=== PATIENT | female | born 1950 | race Caucasian/White ===

== ENCOUNTER → 2017-03-07 | Outpatient (CLI) | payer MEDICARE, OTHER ==
[~2017-03-07] MED LIST: CHOLESTEROL; CRESTOR; HYDR-3720 PO
--- NOTE | 2017-03-09 08:06 | Diagnostic Imaging Report ---
INDICATION: Digital mammogram bilateral screening. This study was compared to the prior exam of 04/18/12 and 03/28/11. At this time, there are no current complaints. The current study was also evaluated with a Computer Aided Detection (CAD) system. FINDINGS: The fibroglandular tissue in both breasts is heterogeneously dense. Tomographic views do suggest that there is an area of mild architectural distortion in the upper-outer aspect of the right breast. I would recommend that compression views of this area be obtained in the CC and MLO projections as well as rolled views in the CC projection. Ultrasound of this portion right breast should be performed as well. The left breast is unchanged. IMPRESSION: Additional mammographic views and ultrasound of right breast would be recommended for further study. ACR BI-RADS Category 0: Incomplete. (Needs additional imaging evaluation). Result letter will be mailed to the patient. Note: At least 10% of breast cancer is not imaged by mammography. Dictated by: Dictated on workstation # [id number]
== END ==
LOC: RAD 13:16
PROVIDERS: ATTEND Family Medicine
DX: Z12.31 Encounter for screening mammogram for malignant neoplasm of breast (principal); R92.8 Other abnormal and inconclusive findings on diagnostic imaging of breast
CPT/HCPCS: 77067

== ENCOUNTER → 2017-03-17 | Outpatient (CLI) | payer MEDICARE, OTHER ==
--- NOTE | 2017-03-17 09:41 | Diagnostic Imaging Report ---
Right breast diagnostic mammogram. INDICATION: Focal asymmetry along the outer aspect of the right breast. CAD is utilized. FINDINGS: Focal compression views and tomographic evaluation demonstrate no definite underlying lesion at the area of focal asymmetry in the outer upper aspect of the right breast. IMPRESSION: Suggestion of summation artifact explaining the focal asymmetry in the upper outer aspect of the right breast. Ultrasound evaluation pending. ACR BI-RADS Category 0: Incomplete. (Needs additional imaging evaluation). Result letter will be mailed to the patient. Note: At least 10% of breast cancer is not imaged by mammography. Dictated by: Dictated on workstation # [id number]
--- NOTE | 2017-03-17 19:46 | Diagnostic Imaging Report ---
Right breast ultrasound. INDICATION: Lateral right breast focal asymmetry. FINDINGS: The outer aspect of the right breast is scanned with no underlying abnormality seen. IMPRESSION: Negative study. The focal asymmetry seen on mammography is favored to be related to summation artifact of parenchyma. Six-month follow-up right breast mammogram is recommended to ensure stability or resolution. ACR BI-RADS Category 3: Probably benign findings. Dictated on workstation # [id number]
== END ==
LOC: RAD 09:05
PROVIDERS: ATTEND Nurse Practitioner Family
DX: R92.8 Other abnormal and inconclusive findings on diagnostic imaging of breast (principal)

== ENCOUNTER → 2017-09-18 | Outpatient (CLI) | payer MEDICARE, OTHER ==
--- NOTE | 2017-09-18 19:55 | Diagnostic Imaging Report ---
INDICATION: Right breast asymmetry. Patient presents for six-month followup. Correlation is made with prior exam from 03/07/2017 and 04/18/2012. The current study was also evaluated with a Computer Aided Detection (CAD) system. FINDINGS: 3-D CC, MLO and mediolateral mammography was performed of the right breast. The area of asymmetry in the upper outer right breast appears stable and most likely represents summation. This is similar to mammogram dating back to 2010. No new mass or malignant appearing microcalcifications are seen. The right axilla is unremarkable. IMPRESSION: Stable right mammogram. Patient should return for bilateral screening mammography in 6 months. ACR BI-RADS Category 2: Benign findings. Result letter will be mailed to the patient. Note: At least 10% of breast cancer is not imaged by mammography. Dictated by: Dictated on workstation # [id number]
== END ==
LOC: RAD 13:35
PROVIDERS: ATTEND Family Medicine
DX: N64.89 Other specified disorders of breast (principal)

== ENCOUNTER → 2018-01-08 | Outpatient (CLI) | payer MEDICARE, OTHER ==
[~2018-01-08] MED LIST changes: +ASPI-983 PO; +ASPI-999 PO; +ATOR40TA70 PO; +CALC-6 PO; +CLOP75TA69 PO; +LOSA1TAB20 PO; +METF500T5 PO; +MULT-35 PO; +OMEP20CA12 PO; +OMG1KC PO; +VITA400C60 PO
[2018-01-08 08:38] LABS: BASOPHILS % (AUTO) 0 % (0-10); EOSINOPHILS # (AUTO) 0.1 10^3/uL (0.0-0.3); EOSINOPHILS % (AUTO) 3 % (0-10); HEMATOCRIT 43 % (35-52); HEMOGLOBIN 14.1 G/DL (11.5-16.0); LYMPHOCYTES # (AUTO) 1.8 X 10^3 (1.0-4.0); LYMPHOCYTES % (AUTO) 34 % (12-44); MEAN CORPUSCULAR HEMOGLOBIN 31 PG (25-34); MEAN CORPUSCULAR HGB CONC 33 G/DL (32-36); MEAN CORPUSCULAR VOLUME 94 FL (80-99); MEAN PLATELET VOLUME 11.2 FL (7.4-10.4); MONOCYTES # (AUTO) 0.4 X 10^3 (0.0-1.0); MONOCYTES % (AUTO) 7 % (0-12); NEUTROPHILS % (AUTO) 56 % (42-75); PLATELET COUNT 177 10^3/uL (130-400); RED BLOOD COUNT 4.61 10^6/uL (4.35-5.85); RED CELL DISTRIBUTION WIDTH 14.7 % (10.0-14.5); WHITE BLOOD COUNT 5.4 10^3/uL (4.3-11.0)
[2018-01-08 09:03] LABS: ALANINE AMINOTRANSFERASE 10 U/L (0-55); ALKALINE PHOSPHATASE 54 U/L (40-136); BILIRUBIN,TOTAL 0.4 MG/DL (0.1-1.0); BUN/CREATININE RATIO 24; CALCIUM 9.5 MG/DL (8.5-10.1); CARBON DIOXIDE 28 MMOL/L (21-32); CHLORIDE 109 MMOL/L (98-107); CHOLESTEROL 153 MG/DL (< 200); CREATININE SERUM 0.76 MG/DL (0.60-1.30); GFR ESTIMATED > 60; GLUCOSE 119 MG/DL (70-105); HDL CHOLESTEROL 50 MG/DL (40-60); MAGNESIUM 1.8 MG/DL (1.8-2.4); POTASSIUM 4.1 MMOL/L (3.6-5.0); SODIUM 144 MMOL/L (135-145); TOTAL PROTEIN 6.3 GM/DL (6.4-8.2); TRIGLYCERIDES 80 MG/DL (<150); VLDL CHOLESTEROL 16 MG/DL (5-40)
[2018-01-08 09:07] LABS: ERYTHROCYTE SEDIMENTATION RATE 6 MM/HR (0-30)
== END ==
LOC: CARD 08:12
PROVIDERS: ATTEND Internal Medicine Cardiovascular Disease
DX: R55 Syncope and collapse (principal); I10 Essential (primary) hypertension; E78.4 Other hyperlipidemia; E11.9 Type 2 diabetes mellitus without complications; Z72.0 Tobacco use
CPT/HCPCS: 36415; 80053; 80061; 83735; 84443; 85025; 85652; 93225; 93226

== ENCOUNTER → 2018-01-09 | Outpatient (CLI) | payer MEDICARE, OTHER ==
[~2018-01-09] VITALS: Ht 147.3 cm; Wt 65.8 kg
[~2018-01-09] MED LIST changes: +CATHETER FLUSH 10 ML SYR IV PRN; +REGADENOSON 0.4 MG/5 ML SYR (LEXISCAN) IV ONE
[2018-01-09 12:11] VITALS: BP 142/71
[2018-01-09 12:15] VITALS: BP 130/67
--- NOTE | 2018-01-09 14:58 | STRESS TEST ---
DATE OF SERVICE: 01/09/2018 RESTING AND POST REGADENOSON TECHNETIUM 99M TETROFOSMIN SPECT CT IMAGING Baseline images were carried out after injection of 10.11 mCi of technetium-99m Tetrofosmin. This was followed by 0.4 mg regadenoson and 30.3 mCi of technetium-99m Tetrofosmin. The electrocardiogram showed sinus rhythm at baseline and it did not change significantly with the regadenoson infusion. The patient noted some shortness of breath following regadenoson infusion, which resolved in a few minutes. Review of images at rest and following stress indicates a small inferoapical perfusion defect that appears transient. Gated images show normal global left ventricular systolic with normal regional wall motion. Left ventricular ejection fraction is calculated to be 74%. Left ventricular end diastolic volume is 60 mL. TID is absent (1.06). CONCLUSIONS: 1. This study is indicative of a small amount of inferoapical ischemia. 2. Normal regional wall motion. 3. Normal global left ventricular systolic function with a calculated ejection fraction of 74%. Job ID: [id number] DocumentID: [id number] Dictated Date: 01/09/2018 14:46:03 Airport Operations Specialist Date: 01/09/2018 14:57:24 Dictated By: CLAIR DE LA CRUZ MD, MA, FACP, FACC,
== END ==
LOC: CARD 10:47
PROVIDERS: ATTEND Internal Medicine Cardiovascular Disease
DX: R55 Syncope and collapse (principal); I10 Essential (primary) hypertension; E78.4 Other hyperlipidemia; E11.9 Type 2 diabetes mellitus without complications; Z72.0 Tobacco use
CPT/HCPCS: 78452; 93017

== ENCOUNTER 2018-01-16 09:53 | Day surgery (SDC) | payer MEDICARE, OTHER ==
[~2018-01-16] VITALS: Ht 147.3 cm; Wt 65.8 kg
[~2018-01-16 09:53] MED LIST changes: -ASPI-983 PO; -ASPI-999 PO; -ATOR40TA70 PO; -CALC-6 PO; -CATHETER FLUSH 10 ML SYR IV PRN; -CLOP75TA69 PO; -LOSA1TAB20 PO; -METF500T5 PO; -MULT-35 PO; -OMEP20CA12 PO; -OMG1KC PO; -REGADENOSON 0.4 MG/5 ML SYR (LEXISCAN) IV ONE; -VITA400C60 PO
--- OUTSIDE RECORDS SUMMARY | 2018-01-16 09:56 | XMS REPORT ---
Author Author PAUL BURR Organization [facility] Address [address] [place] [address] Care Team Providers Care Pharmaceutical Sales Representative Name Role Phone PAUL BURR Unavailable PROBLEMS Unknown Problems ALLERGIES No Information ENCOUNTERS Encounter Location Date Diagnosis [facility] [address] [facility] [id number] [address] May, Exposure to hepatitis C Z20.5 IMMUNIZATIONS No Known Immunizations SOCIAL HISTORY Never Assessed REASON FOR VISIT Lab (walk-in) PLAN OF CARE VITAL SIGNS MEDICATIONS Unknown Medications RESULTS Name Result Date Reference Range HEP C ANTIBODY 2017-05-06 HEPATITIS C ANTIBODY NON-REACTIVE NON-REACTIVE SIGNAL TO CUT-OFF 0.01 <1.00 PROCEDURES Procedure Date Ordered Result Body Site HEPATITIS C AB TEST May 06, 2017 VENIPUNCT, ROUTINE* May 06, 2017 INSTRUCTIONS MEDICATIONS ADMINISTERED No Known Medications
--- OUTSIDE RECORDS SUMMARY | 2018-01-16 09:58 | XMS REPORT | CCD ---
Author Author Mayte Hanson Organization Mayte Hanson MD, [facility] Address [address] [place] [address] Phone Care Team Providers Care Medical Coordinator Pesticide Use Name Role Phone PP Unavailable CCM Unavailable Summary Purpose Interface Exchange Insurance Providers Payer name Policy type / Coverage type Covered constitution party ID Effective Begin Date Effective End Date WPS Medicare Part B Medicare Part B [id number] Unknown Unknown [employer] Medicare Part B [id number] Unknown Unknown Family history Mother Diagnosis Age At Onset Stroke Unknown Skin cancer Unknown Hypertension Unknown Osteoporosis Unknown Myocardial infarction Unknown Brother Diagnosis Age At Onset Myocardial infarction Unknown Son Diagnosis Age At Onset Depression Unknown Hypertension Unknown Alcoholism Unknown Social History Social History Element Codes Description Effective Dates Marital status Unknown 02/08/2016 Employment Unknown Retired 02/08/[address]: 84903940 Current every day smoker 02/08/2016 Number of years using tobacco Unknown 20 - 30 02/08/2016 Number of cigarettes/day Unknown 20 (One Pack) 02/08/[address]: 059271366 Never drinks alcohol 02/08/2016 Has the patient ever used illegal drugs? Unknown Has never used illegal drugs 02/08/2016 Allergies, Adverse Reactions, Alerts Allergies, Adverse Reactions, Alerts data not found Past Medical History Illness Codes Condition Status Onset Date Resolved Date Encounter for screening mammogram for malignant neoplasm of breast ICD-9: V76.12 ICD-10: Z12.31 Active 02/09/2017 Unknown Essential (primary) hypertension ICD-9: 401.1 ICD-10: I10 Active 04/10/2016 Unknown Mixed hyperlipidemia ICD-9: 272.2 ICD-10: E78.2 Active 02/07/2016 Unknown Tobacco use ICD-9: 305.1 ICD-10: Z72.0 Active 04/10/2016 Unknown Type 2 diabetes mellitus without complications ICD-9: 250.00 ICD-10: E11.9 Active 04/10/2016 Unknown Diabetes Unknown Active 11/09/2016 Unknown Encounter for immunization ICD-9: V04.81 ICD-10: Z23 Active 04/10/2016 Unknown Gastro-esophageal reflux disease without esophagitis ICD-9: 530.81 ICD-10: K21.9 Active 03/13/2016 Unknown Type 2 diabetes mellitus with hyperglycemia ICD-9: 250.02 ICD-10: E11.65 Active 03/13/2016 Unknown Impacted cerumen, bilateral ICD-9: 380.4 ICD-10: H61.23 Active 02/14/2016 Unknown Problems Condition Codes Effective Dates Condition Status Encounter for screening mammogram for malignant neoplasm of breast ICD-9: V76.12 ICD-10: Z12.31 02/09/2017 Active Essential (primary) hypertension ICD-9: 401.1 ICD-10: I10 04/10/2016 Active Mixed hyperlipidemia ICD-9: 272.2 ICD-10: E78.2 02/07/2016 Active Tobacco use ICD-9: 305.1 ICD-10: Z72.0 04/10/2016 Active Type 2 diabetes mellitus without complications ICD-9: 250.00 ICD-10: E11.9 04/10/2016 Active Diabetes Unknown 11/09/2016 Active Encounter for immunization ICD-9: V04.81 ICD-10: Z23 04/10/2016 Active Gastro-esophageal reflux disease without esophagitis ICD-9: 530.81 ICD-10: K21.9 03/13/2016 Active Type 2 diabetes mellitus with hyperglycemia ICD-9: 250.02 ICD-10: E11.65 03/13/2016 Active Impacted cerumen, bilateral ICD-9: 380.4 ICD-10: H61.23 02/14/2016 Active Medications Medication Codes Instructions Start Date Stop Date Status Fill Instructions omeprazole 20 mg capsule,delayed release RxNorm: 006113 1 Capsule(s) PO daily 07/07/2017 07/01/2018 Active atorvastatin 40 mg tablet RxNorm: 910672 1 Tablet(s) PO daily 07/07/2017 07/01/2018 Active losartan 50 mg-hydrochlorothiazide 12.5 mg tablet RxNorm: 641417 1 Tablet(s) PO daily 07/07/2017 07/01/2018 Active metformin 500 mg tablet RxNorm: 698250 1 Tablet(s) PO BID 02/0905/04/2018 Active omeprazole 20 mg capsule,delayed release RxNorm: 289660 1 Capsule(s) PO daily 12/20/2016 07/06/2017 Inactive metformin 500 mg tablet RxNorm: 292177 TAKE ONE-HALF TABLET BY MOUTH TWICE DAILY 09/12/2016 02/08/2017 Inactive metformin 500 mg tablet RxNorm: 103010 1/2 Tablet(s) PO BID 02/201609/06/2016 Inactive atorvastatin 40 mg tablet RxNorm: 953699 1 Tablet(s) PO daily 06/08/2016 06/02/2017 Inactive losartan 50 mg-hydrochlorothiazide 12.5 mg tablet RxNorm: 234038 1 Tablet(s) PO daily 06/08/2016 06/02/2017 Inactive losartan 50 mg-hydrochlorothiazide 12.5 mg tablet RxNorm: 824411 1 Tablet(s) PO daily 04/11/2016 06/07/2016 Inactive omeprazole 20 mg capsule,delayed release RxNorm: 066427 1 Capsule(s) PO daily 03/14/2016 12/19/2016 Inactive metformin 500 mg tablet RxNorm: 622724 1/2 Tablet(s) PO BID 06/201606/08/2016 Inactive losartan 50 mg-hydrochlorothiazide 12.5 mg tablet RxNorm: 989755 1 Tablet(s) PO daily 02/08/2016 04/10/2016 Inactive Vitamin D3 1,000 unit tablet RxNorm: 316448 1 Tablet(s) PO daily No Start Date Active vitamin E 400 unit tablet RxNorm: 843047 1 Tablet(s) PO daily No Start Date Active multivitamin tablet RxNorm: 1 Tablet(s) PO daily No Start Date Active Fish Oil 300 mg-1,000 mg capsule,delayed release RxNorm: 1 Capsule(s) PO daily No Start Date Active Calcium 600 oral RxNorm: 453815 oral No Start Date Active aspirin 325 mg tablet RxNorm: 430653 1 Tablet(s) PO daily No Start Date Active atorvastatin 40 mg tablet RxNorm: 765723 1 Tablet(s) PO daily No Start Date 06/07/2016 Inactive omeprazole 40 mg capsule,delayed release RxNorm: 977392 1 Capsule(s) PO daily No Start Date 03/13/2016 Inactive Medication Administered No Medication Administered data Immunizations Vaccine Codes Date Status Influenza CVX: 141 04/11/2016 completed Assessments Condition Codes Effective Dates Essential (primary) hypertension ICD-10: I10 ICD-9: 401.1 02/09/2017 Tobacco use ICD-10: Z72.0 ICD-9: 305.1 02/09/2017 Encounter for screening mammogram for malignant neoplasm of breast ICD-10: Z12.31 ICD-9: V76.12 02/09/2017 Type 2 diabetes mellitus without complications ICD-10: E11.9 ICD-9: 250.00 02/09/2017 Mixed hyperlipidemia ICD-10: E78.2 ICD-9: 272.2 02/09/2017 Encounter for immunization ICD-10: Z23 ICD-9: V04.81 04/11/2016 Type 2 diabetes mellitus with hyperglycemia ICD-10: E11.65 ICD-9: 250.02 03/14/2016 Gastro-esophageal reflux disease without esophagitis ICD-10 : K21.9 ICD-9: 530.81 03/14/2016 Impacted cerumen, bilateral ICD-10: H61.23 ICD-9: 380.4 02/15/2016 Reason For Visit Reason For Visit Effective Dates Notes hypertension 02/09/2017 hypertension 11/09/2016 hypertension 07/12/2016 hypertension 04/11/2016 hypertension 03/14/2016 hyperlipidemia 02/08/2016 Results Observation Observation Code Item Item Code Result Date Cbc With Differential Ord2 WBC 5.39 K/ul 08/02/2017 Cbc With Differential Ord2 RBC 4.70 M/ul 08/02/2017 Cbc With Differential Ord2 HGB 14.3 g/dl 08/02/2017 Cbc With Differential Ord2 HCT 44.5 % 08/02/2017 Cbc With Differential Ord2 Neut% 53.8 % 08/02/2017 Cbc With Differential Ord2 MCV 94.7 fl 08/02/2017 Cbc With Differential Ord2 Lymph% 35.8 % 08/02/2017 Cbc With Differential Ord2 [place]% 7.2 % 08/02/2017 Cbc With Differential Ord2 MCH 30.4 pg 08/02/2017 Cbc With Differential Ord2 MCHC 32.1 pg 08/02/2017 Cbc With Differential Ord2 Eos% 2.8 % 08/02/2017 Cbc With Differential Ord2 Baso% 0.4 % 08/02/2017 Cbc With Differential Ord2 PLT 158 K/ul 08/02/2017 Cbc With Differential Ord2 Neut ABS# 2.90 K/ul 08/02/2017 Cbc With Differential Ord2 RDW 14.9 % 08/02/2017 Cbc With Differential Ord2 Lymph ABS# 1.93 K/ul 08/02/2017 Cbc With Differential Ord2 [place] ABS# 0.4 K/ul 08/02/2017 Cbc With Differential Ord2 Eos ABS# 0.2 K/ul 08/02/2017 Cbc With Differential Ord2 Baso ABS# 0.0 K/ul 08/02/2017 Cbc With Differential Ord2 WBC 5.28 K/ul 02/02/2017 Cbc With Differential Ord2 RBC 4.75 M/ul 02/02/2017 Cbc With Differential Ord2 HGB 14.6 g/dl 02/02/2017 Cbc With Differential Ord2 Neut% 50.5 % 02/02/2017 Cbc With Differential Ord2 HCT 45.1 % 02/02/2017 Cbc With Differential Ord2 MCV 94.9 fl 02/02/2017 Cbc With Differential Ord2 Lymph% 37.7 % 02/02/2017 Cbc With Differential Ord2 MCH 30.7 pg 02/02/2017 Cbc With Differential Ord2 [place]% 8.7 % 02/02/2017 Cbc With Differential Ord2 Eos% 2.7 % 02/02/2017 Cbc With Differential Ord2 MCHC 32.4 pg 02/02/2017 Cbc With Differential Ord2 Baso% 0.4 % 02/02/2017 Cbc With Differential Ord2 PLT 155 K/ul 02/02/2017 Cbc With Differential Ord2 RDW 15.0 % 02/02/2017 Cbc With Differential Ord2 Neut ABS# 2.67 K/ul 02/02/2017 Cbc With Differential Ord2 Lymph ABS# 1.99 K/ul 02/02/2017 Cbc With Differential Ord2 [place] ABS# 0.5 K/ul 02/02/2017 Cbc With Differential Ord2 Eos ABS# 0.1 K/ul 02/02/2017 Cbc With Differential Ord2 Baso ABS# 0.0 K/ul 02/02/2017 Lipid Ord30 CHOL 134 mg/dL 02/02/2017 Lipid Ord30 HDL 57.0 mg/dl 02/02/2017 Lipid Ord30 TRIG 73 mg/dL 02/02/2017 Lipid Ord30 LDL 62 mg/dL 02/02/2017 Lipid Ord30 C/HDL 2.4 Ratio 02/02/2017 Tsh Ord6 hTSH II 0.69 uIU/mL 02/02/2017 %Hba1C Pds603 % HbA1c 58109-2 6.1 % 02/02/2017 %Hba1C Ikq011 Gluc Ave 128 mg/dL 02/02/2017 Comp Metabolic Ido613 NA 145 mEq/L 02/02/2017 Comp Metabolic Bdj262 K 4.2 mEq/L 02/02/2017 Comp Metabolic Jqr707 CL 106 mEq/L 02/02/2017 Comp Metabolic Ljy402 CO2 30.0 mEq/L 02/02/2017 Comp Metabolic Cce227 ANION GAP 13 02/02/2017 Comp Metabolic Mfn501 GLUCOSE 110 mg/dL 02/02/2017 Comp Metabolic Nvk486 Creat 0.7 mg/dL 02/02/2017 Comp Metabolic Mwh242 eGFR 96 ml/min/1.73m2 02/02/2017 Comp Metabolic Zvh298 BUN 19 mg/dL 02/02/2017 Comp Metabolic Ruu487 B/C Ratio 29.2 Ratio 02/02/2017 Comp Metabolic Vjv683 CALCIUM 9.3 mg/dL 02/02/2017 Comp Metabolic Bmz667 ALK PHOS 58 U/L 02/02/2017 Comp Metabolic Wyq146 AST(SGOT) 12 U/L 02/02/2017 Comp Metabolic Suz083 ALT(SGPT) 10 U/L 02/02/2017 Comp Metabolic Iic464 BILI T 0.4 mg/dL 02/02/2017 Comp Metabolic Xxp349 ALBUMIN 4.0 g/dL 02/02/2017 Comp Metabolic Ttp958 TPRO 6.2 g/dL 02/02/2017 Comp Metabolic Gde115 GLOB 2.2 g/dL 02/02/2017 Comp Metabolic Mzx412 A/G Ratio 1.8 Ratio 02/02/2017 Comp Metabolic Vbn916 Osmo 292 mOsmo 02/02/2017 Comp Metabolic Oxk839 NA 145 mEq/L 11/01/2016 Comp Metabolic Aqv797 K 4.3 mEq/L 11/01/2016 Comp Metabolic Uho977 CL 106 mEq/L 11/01/2016 Comp Metabolic Gqx688 CO2 32.0 mEq/L 11/01/2016 Comp Metabolic Inn922 ANION GAP 11 11/01/2016 Comp Metabolic Cct379 GLUCOSE 126 mg/dL 11/01/2016 Comp Metabolic Isd461 Creat 0.6 mg/dL 11/01/2016 Comp Metabolic Uye392 eGFR 100 ml/min/1.73m2 11/01/2016 Comp Metabolic Vca960 BUN 18 mg/dL 11/01/2016 Comp Metabolic Dod200 B/C Ratio 28.6 Ratio 11/01/2016 Comp Metabolic Lyy602 CALCIUM 9.2 mg/dL 11/01/2016 Comp Metabolic Ypr028 ALK PHOS 63 U/L 11/01/2016 Comp Metabolic Gsu840 AST(SGOT) 12 U/L 11/01/2016 Comp Metabolic Ral690 ALT(SGPT) 10 U/L 11/01/2016 Comp Metabolic Jvv542 BILI T 0.5 mg/dL 11/01/2016 Comp Metabolic Mce470 ALBUMIN 3.9 g/dL 11/01/2016 Comp Metabolic Gxm538 TPRO 6.1 g/dL 11/01/2016 Comp Metabolic Odn727 GLOB 2.2 g/dL 11/01/2016 Comp Metabolic Gvy578 A/G Ratio 1.8 Ratio 11/01/2016 Comp Metabolic Jqu942 Osmo 292 mOsmo 11/01/2016 Microalbumin Qcr549 MicroAlb <0.7 mg/dL 11/01/2016 Cbc With Differential Ord2 WBC 5.74 K/ul 11/01/2016 Cbc With Differential Ord2 RBC 4.82 M/ul 11/01/2016 Cbc With Differential Ord2 HGB 14.9 g/dl 11/01/2016 Cbc With Differential Ord2 Neut% 56.4 % 11/01/2016 Cbc With Differential Ord2 HCT 46.1 % 11/01/2016 Cbc With Differential Ord2 MCV 95.6 fl 11/01/2016 Cbc With Differential Ord2 Lymph% 33.4 % 11/01/2016 Cbc With Differential Ord2 [place]% 7.5 % 11/01/2016 Cbc With Differential Ord2 MCH 30.9 pg 11/01/2016 Cbc With Differential Ord2 MCHC 32.3 pg 11/01/2016 Cbc With Differential Ord2 Eos% 2.4 % 11/01/2016 Cbc With Differential Ord2 PLT 186 K/ul 11/01/2016 Cbc With Differential Ord2 Baso% 0.3 % 11/01/2016 Cbc With Differential Ord2 RDW 14.9 % 11/01/2016 Cbc With Differential Ord2 Neut ABS# 3.23 K/ul 11/01/2016 Cbc With Differential Ord2 Lymph ABS# 1.92 K/ul 11/01/2016 Cbc With Differential Ord2 [place] ABS# 0.4 K/ul 11/01/2016 Cbc With Differential Ord2 Eos ABS# 0.1 K/ul 11/01/2016 Cbc With Differential Ord2 Baso ABS# 0.0 K/ul 11/01/2016 %Hba1C Umy564 % HbA1c 24604-9 6.2 % 11/01/2016 %Hba1C Tfa712 Gluc Ave 131 mg/dL 11/01/2016 Lipid Ord30 CHOL 150 mg/dL 07/07/2016 Lipid Ord30 HDL 51.0 mg/dl 07/07/2016 Lipid Ord30 TRIG 133 mg/dL 07/07/2016 Lipid Ord30 LDL 72 mg/dL 07/07/2016 Lipid Ord30 C/HDL 2.9 Ratio 07/07/2016 %Hba1C Wfw359 % HbA1c 71905-8 6.2 % 07/07/2016 %Hba1C Aoh567 Gluc Ave 131 mg/dL 07/07/2016 Cbc With Differential Ord2 WBC 6.02 K/ul 07/07/2016 Cbc With Differential Ord2 RBC 4.99 M/ul 07/07/2016 Cbc With Differential Ord2 HGB 15.5 g/dl 07/07/2016 Cbc With Differential Ord2 HCT 46.6 % 07/07/2016 Cbc With Differential Ord2 Neut% 55.6 % 07/07/2016 Cbc With Differential Ord2 MCV 93.4 fl 07/07/2016 Cbc With Differential Ord2 Lymph% 32.6 % 07/07/2016 Cbc With Differential Ord2 MCH 31.1 pg 07/07/2016 Cbc With Differential Ord2 [place]% 7.5 % 07/07/2016 Cbc With Differential Ord2 Eos% 3.3 % 07/07/2016 Cbc With Differential Ord2 MCHC 33.3 pg 07/07/2016 Cbc With Differential Ord2 Baso% 1.0 % 07/07/2016 Cbc With Differential Ord2 PLT 235 K/ul 07/07/2016 Cbc With Differential Ord2 RDW 14.5 % 07/07/2016 Cbc With Differential Ord2 Neut ABS# 3.35 K/ul 07/07/2016 Cbc With Differential Ord2 Lymph ABS# 1.96 K/ul 07/07/2016 Cbc With Differential Ord2 [place] ABS# 0.5 K/ul 07/07/2016 Cbc With Differential Ord2 Eos ABS# 0.2 K/ul 07/07/2016 Cbc With Differential Ord2 Baso ABS# 0.1 K/ul 07/07/2016 Tsh Ord6 hTSH II 0.72 uIU/mL 07/07/2016 Comp Metabolic Hoo926 NA 141 mEq/L 07/07/2016 Comp Metabolic Uad793 K 3.8 mEq/L 07/07/2016 Comp Metabolic Ish446 CL 104 mEq/L 07/07/2016 Comp Metabolic Ely135 CO2 27.0 mEq/L 07/07/2016 Comp Metabolic Ztk361 ANION GAP 14 07/07/2016 Comp Metabolic Mzj269 GLUCOSE 128 mg/dL 07/07/2016 Comp Metabolic Tdr041 Creat 0.7 mg/dL 07/07/2016 Comp Metabolic Hyp219 eGFR 95 ml/min/1.73m2 07/07/2016 Comp Metabolic Cib870 BUN 11 mg/dL 07/07/2016 Comp Metabolic Qrg813 B/C Ratio 16.7 Ratio 07/07/2016 Comp Metabolic Vhx577 CALCIUM 9.9 mg/dL 07/07/2016 Comp Metabolic Zca982 ALK PHOS 75 U/L 07/07/2016 Comp Metabolic Cva080 AST(SGOT) 18 U/L 07/07/2016 Comp Metabolic Ige696 ALT(SGPT) 21 U/L 07/07/2016 Comp Metabolic Hnh021 BILI T 0.5 mg/dL 07/07/2016 Comp Metabolic Ece657 ALBUMIN 4.4 g/dL 07/07/2016 Comp Metabolic Rtd002 TPRO 6.8 g/dL 07/07/2016 Comp Metabolic Ezp772 GLOB 2.4 g/dL 07/07/2016 Comp Metabolic Agk121 A/G Ratio 1.9 Ratio 07/07/2016 Comp Metabolic Tan319 Osmo 282 mOsmo 07/07/2016 LIVER PNL 0806437 TOTAL PROTEIN 7.2 g/dL 04/07/2016 LIVER PNL 8958973 AST 21 U/L 04/07/2016 LIVER PNL 1772765 ALK PHOS 73 U/L 04/07/2016 LIVER PNL 2217251 Bili Total 0.5 mg/dL 04/07/2016 LIVER PNL 7955644 ALT 32 U/L 04/07/2016 LIVER PNL 0839901 ALBUMIN 4.5 g/dL 04/07/2016 LIVER PNL 1408867 Bili Direct 0.1 mg/dL 04/07/2016 CBC 9641378 WBC 5.6 10e9/L 04/07/2016 CBC 9720726 RBC 4.87 10e12/L 04/07/2016 CBC 0054197 HEMOGLOBIN 15.0 g/dL 04/07/2016 CBC 2089645 HEMATOCRIT 45.2 % 04/07/2016 CBC 3651052 MCV 92.8 fL 04/07/2016 CBC 3103071 MCH 30.8 pg 04/07/2016 CBC 3567524 MCHC 33.2 g/dL 04/07/2016 CBC 3175120 PLATELET COUNT 201 10e9/L 04/07/2016 CBC 4060047 Mean Plt Volume 12.1 fL 04/07/2016 CBC 0094561 Neut Auto 54.9 % 04/07/2016 CBC 7591140 Lymph Auto 32.6 % 04/07/2016 CBC 6221370 [place] Auto 8.6 % 04/07/2016 CBC 1143210 RDW 13.7 % 04/07/2016 CBC 4847132 Eos Auto 3.2 % 04/07/2016 CBC 3588275 Baso Auto 0.7 % 04/07/2016 CBC 2646551 Neutrophil Abs 3.07 10e9/L 04/07/2016 CBC 8481674 Lymphocyte Abs 1.83 10e9/L 04/07/2016 CBC 6791910 Monocyte Abs 0.48 10e9/L 04/07/2016 CBC 3202681 Eosinophil Abs 0.18 10e9/L 04/07/2016 CBC 1832278 Basophil Abs 0.04 10e9/L 04/07/2016 CBC 3296982 RDW-SD 45.5 fL 04/07/2016 %Hba1C Yqf847 % HbA1c 98826-6 7.1 % 03/04/2016 %Hba1C Eau512 Gluc Ave 157 mg/dL 03/04/2016 Comp Metabolic Ftu611 NA 139 mEq/L 03/04/2016 Comp Metabolic Byv943 K 4.1 mEq/L 03/04/2016 Comp Metabolic Nca210 CL 105 mEq/L 03/04/2016 Comp Metabolic Gbz640 CO2 28.0 mEq/L 03/04/2016 Comp Metabolic Bdc215 ANION GAP 10 03/04/2016 Comp Metabolic Tkj207 GLUCOSE 146 mg/dL 03/04/2016 Comp Metabolic Jfo635 Creat 0.7 mg/dL 03/04/2016 Comp Metabolic Cdc703 eGFR 83 ml/min/1.73m2 03/04/2016 Comp Metabolic Hvb054 BUN 19 mg/dL 03/04/2016 Comp Metabolic Qip046 B/C Ratio 25.7 Ratio 03/04/2016 Comp Metabolic Tst606 CALCIUM 9.5 mg/dL 03/04/2016 Comp Metabolic Amh252 ALK PHOS 84 U/L 03/04/2016 Comp Metabolic Zhz634 AST(SGOT) 29 U/L 03/04/2016 Comp Metabolic Tkn009 ALT(SGPT) 44 U/L 03/04/2016 Comp Metabolic Uoz336 BILI T 0.5 mg/dL 03/04/2016 Comp Metabolic Rtn251 ALBUMIN 4.4 g/dL 03/04/2016 Comp Metabolic Jfj240 TPRO 6.8 g/dL 03/04/2016 Comp Metabolic Onh824 GLOB 2.4 g/dL 03/04/2016 Comp Metabolic Qit739 A/G Ratio 1.8 Ratio 03/04/2016 Comp Metabolic Erw499 Osmo 282 mOsmo 03/04/2016 Lipid Ord30 CHOL 191 mg/dL 03/04/2016 Lipid Ord30 HDL 38.0 mg/dl 03/04/2016 Lipid Ord30 TRIG 219 mg/dL 03/04/2016 Lipid Ord30 LDL 109 mg/dL 03/04/2016 Lipid Ord30 C/HDL 5.0 Ratio 03/04/2016 Tsh Ord6 hTSH II 0.57 uIU/mL 03/04/2016 Cbc With Differential Ord2 WBC 5.61 K/ul 03/04/2016 Cbc With Differential Ord2 RBC 4.94 M/ul 03/04/2016 Cbc With Differential Ord2 HGB 15.3 g/dl 03/04/2016 Cbc With Differential Ord2 HCT 46.4 % 03/04/2016 Cbc With Differential Ord2 Neut% 51.9 % 03/04/2016 Cbc With Differential Ord2 MCV 93.9 fl 03/04/2016 Cbc With Differential Ord2 Lymph% 36.4 % 03/04/2016 Cbc With Differential Ord2 [place]% 7.8 % 03/04/2016 Cbc With Differential Ord2 MCH 31.0 pg 03/04/2016 Cbc With Differential Ord2 MCHC 33.0 pg 03/04/2016 Cbc With Differential Ord2 Eos% 3.4 % 03/04/2016 Cbc With Differential Ord2 Baso% 0.5 % 03/04/2016 Cbc With Differential Ord2 PLT 169 K/ul 03/04/2016 Cbc With Differential Ord2 RDW 14.2 % 03/04/2016 Cbc With Differential Ord2 Neut ABS# 2.91 K/ul 03/04/2016 Cbc With Differential Ord2 Lymph ABS# 2.04 K/ul 03/04/2016 Cbc With Differential Ord2 [place] ABS# 0.4 K/ul 03/04/2016 Cbc With Differential Ord2 Eos ABS# 0.2 K/ul 03/04/2016 Cbc With Differential Ord2 Baso ABS# 0.0 K/ul 03/04/2016 Review of Systems System Result Effective Dates Constitutional No recent illness 2016 Constitutional No chills 02/09/2017 Constitutional No fatigue 02/09/2017 Constitutional No fever 02/09/2017 Constitutional No insomnia 02/09/2017 Constitutional No malaise 02/09/2017 Eyes No blindness 02/09/2017 Eyes No vision change 02/09/2017 Ears/Nose/Throat/Neck No dental pain 04/2017 Ears/Nose/Throat/Neck No dizziness 2016 Ears/Nose/Throat/Neck No dysphagia 2016 Ears/Nose/Throat/Neck No headache 2016 Ears/Nose/Throat/Neck No hearing loss 04/2017 Ears/Nose/Throat/Neck No nasal allergies 02/09/2017 Ears/Nose/Throat/Neck No sore throat 04/2017 Ears/Nose/Throat/Neck No postnasal drip 02/09/2017 Ears/Nose/Throat/Neck No sinus congestion 02/09/2017 Cardiovascular No chest pain/pressure 04/2017 Cardiovascular No dyspnea 02/09/2017 Cardiovascular No edema 02/09/2017 Cardiovascular No exercise intolerance Cardiovascular No fatigue 02/09/2017 Cardiovascular No near-syncope/dizziness 02/09/2017 Respiratory No chest tightness 2016 Respiratory No cough 02/09/2017 Respiratory No dyspnea 02/09/2017 Respiratory No pedal edema 02/09/2017 Gastrointestinal No abdominal pain 2016 Gastrointestinal No constipation 2016 Gastrointestinal No diarrhea 02/09/2017 Gastrointestinal No gastroesophageal reflux 02/09/2017 Gastrointestinal No nausea 02/09/2017 Gastrointestinal No vomiting 02/09/2017 Genitourinary/Nephrology No dysuria 02/09 Genitourinary/Nephrology No nocturia 04/2017 Genitourinary/Nephrology No urinary incontinence 02/09/2017 Musculoskeletal No stiffness 02/09/2017 Musculoskeletal No swelling 02/09/2017 Musculoskeletal No muscle weakness 2016 Musculoskeletal No myalgias 02/09/2017 Dermatologic No rash 02/09/2017 Dermatologic No sores 02/09/2017 Dermatologic No scar 02/09/2017 Neurologic No dizziness 02/09/2017 Neurologic No headache 02/09/2017 Neurologic No neck pain 02/09/2017 Neurologic No syncope 02/09/2017 Psychiatric No anxiety 02/09/2017 Psychiatric No depression 02/09/2017 Constitutional No recent illness 2016 Constitutional No chills 11/09/2016 Constitutional No fatigue 11/09/2016 Constitutional No fever 11/09/2016 Constitutional No insomnia 11/09/2016 Constitutional No malaise 11/09/2016 Eyes No blindness 11/09/2016 Eyes No vision change 11/09/2016 Ears/Nose/Throat/Neck No dental pain 04/2017 Ears/Nose/Throat/Neck No dizziness 2016 Ears/Nose/Throat/Neck No dysphagia 2016 Ears/Nose/Throat/Neck No headache 2016 Ears/Nose/Throat/Neck No hearing loss 04/2017 Ears/Nose/Throat/Neck No nasal allergies 11/09/2016 Ears/Nose/Throat/Neck No sore throat 04/2017 Ears/Nose/Throat/Neck No postnasal drip 11/09/2016 Ears/Nose/Throat/Neck No sinus congestion 11/09/2016 Cardiovascular No chest pain/pressure 04/2017 Cardiovascular No dyspnea 11/09/2016 Cardiovascular No edema 11/09/2016 Cardiovascular No exercise intolerance Cardiovascular No fatigue 11/09/2016 Cardiovascular No near-syncope/dizziness 11/09/2016 Respiratory No chest tightness 2016 Respiratory No cough 11/09/2016 Respiratory No dyspnea 11/09/2016 Respiratory No pedal edema 11/09/2016 Gastrointestinal No abdominal pain 2016 Gastrointestinal No constipation 2016 Gastrointestinal No diarrhea 11/09/2016 Gastrointestinal No gastroesophageal reflux 11/09/2016 Gastrointestinal No nausea 11/09/2016 Gastrointestinal No vomiting 11/09/2016 Genitourinary/Nephrology No dysuria 11/09 Genitourinary/Nephrology No nocturia 04/2017 Genitourinary/Nephrology No urinary incontinence 11/09/2016 Musculoskeletal No stiffness 11/09/2016 Musculoskeletal No swelling 11/09/2016 Musculoskeletal No muscle weakness 2016 Musculoskeletal No myalgias 11/09/2016 Dermatologic No rash 11/09/2016 Dermatologic No sores 11/09/2016 Dermatologic No scar 11/09/2016 Neurologic No dizziness 11/09/2016 Neurologic No headache 11/09/2016 Neurologic No neck pain 11/09/2016 Neurologic No syncope 11/09/2016 Psychiatric No anxiety 11/09/2016 Psychiatric No depression 11/09/2016 Constitutional No recent illness 2016 Constitutional No chills 07/12/2016 Constitutional No fatigue 07/12/2016 Constitutional No fever 07/12/2016 Constitutional No insomnia 07/12/2016 Constitutional No malaise 07/12/2016 Eyes No blindness 07/12/2016 Eyes No vision change 07/12/2016 Ears/Nose/Throat/Neck No dental pain 04/2017 Ears/Nose/Throat/Neck No dizziness 2016 Ears/Nose/Throat/Neck No dysphagia 2016 Ears/Nose/Throat/Neck No headache 2016 Ears/Nose/Throat/Neck No hearing loss 04/2017 Ears/Nose/Throat/Neck No nasal allergies 07/12/2016 Ears/Nose/Throat/Neck No sore throat 04/2017 Ears/Nose/Throat/Neck No postnasal drip 07/12/2016 Ears/Nose/Throat/Neck No sinus congestion 07/12/2016 Cardiovascular No chest pain/pressure 04/2017 Cardiovascular No dyspnea 07/12/2016 Cardiovascular No edema 07/12/2016 Cardiovascular No exercise intolerance Cardiovascular No fatigue 07/12/2016 Cardiovascular No near-syncope/dizziness 07/12/2016 Respiratory No chest tightness 2016 Respiratory No cough 07/12/2016 Respiratory No dyspnea 07/12/2016 Respiratory No pedal edema 07/12/2016 Gastrointestinal No abdominal pain 2016 Gastrointestinal No constipation 2016 Gastrointestinal No diarrhea 07/12/2016 Gastrointestinal No gastroesophageal reflux 07/12/2016 Gastrointestinal No nausea 07/12/2016 Gastrointestinal No vomiting 07/12/2016 Genitourinary/Nephrology No dysuria 07/12 Genitourinary/Nephrology No nocturia 04/2017 Genitourinary/Nephrology No urinary incontinence 07/12/2016 Musculoskeletal No stiffness 07/12/2016 Musculoskeletal No swelling 07/12/2016 Musculoskeletal No muscle weakness 2016 Musculoskeletal No myalgias 07/12/2016 Dermatologic No rash 07/12/2016 Dermatologic No sores 07/12/2016 Dermatologic No scar 07/12/2016 Neurologic No dizziness 07/12/2016 Neurologic No headache 07/12/2016 Neurologic No neck pain 07/12/2016 Neurologic No syncope 07/12/2016 Psychiatric No anxiety 07/12/2016 Psychiatric No depression 07/12/2016 Constitutional No recent illness 2015 Constitutional No chills 04/11/2016 Constitutional No fatigue 04/11/2016 Constitutional No fever 04/11/2016 Constitutional No insomnia 04/11/2016 Constitutional No malaise 04/11/2016 Eyes No blindness 04/11/2016 Eyes No vision change 04/11/2016 Ears/Nose/Throat/Neck No dental pain 04/2016 Ears/Nose/Throat/Neck No dizziness 2015 Ears/Nose/Throat/Neck No dysphagia 2015 Ears/Nose/Throat/Neck No headache 2015 Ears/Nose/Throat/Neck No hearing loss 04/2016 Ears/Nose/Throat/Neck No nasal allergies 04/11/2016 Ears/Nose/Throat/Neck No sore throat 04/2016 Ears/Nose/Throat/Neck No postnasal drip 04/11/2016 Ears/Nose/Throat/Neck No sinus congestion 04/11/2016 Cardiovascular No chest pain/pressure 04/2016 Cardiovascular No dyspnea 04/11/2016 Cardiovascular No edema 04/11/2016 Cardiovascular No exercise intolerance Cardiovascular No fatigue 04/11/2016 Cardiovascular No near-syncope/dizziness 04/11/2016 Respiratory No chest tightness 2015 Respiratory No cough 04/11/2016 Respiratory No dyspnea 04/11/2016 Respiratory No pedal edema 04/11/2016 Gastrointestinal No abdominal pain 2015 Gastrointestinal No constipation 2015 Gastrointestinal No diarrhea 04/11/2016 Gastrointestinal No gastroesophageal reflux 04/11/2016 Gastrointestinal No nausea 04/11/2016 Gastrointestinal No vomiting 04/11/2016 Genitourinary/Nephrology No dysuria 04/11 Genitourinary/Nephrology No nocturia 04/2016 Genitourinary/Nephrology No urinary incontinence 04/11/2016 Musculoskeletal No stiffness 04/11/2016 Musculoskeletal No swelling 04/11/2016 Musculoskeletal No muscle weakness 2015 Musculoskeletal No myalgias 04/11/2016 Dermatologic No rash 04/11/2016 Dermatologic No sores 04/11/2016 Dermatologic No scar 04/11/2016 Neurologic No dizziness 04/11/2016 Neurologic No headache 04/11/2016 Neurologic No neck pain 04/11/2016 Neurologic No syncope 04/11/2016 Psychiatric No anxiety 04/11/2016 Psychiatric No depression 04/11/2016 Constitutional No recent illness 2015 Constitutional No chills 03/14/2016 Constitutional No fatigue 03/14/2016 Constitutional No fever 03/14/2016 Constitutional No insomnia 03/14/2016 Constitutional No malaise 03/14/2016 Eyes No blindness 03/14/2016 Eyes No vision change 03/14/2016 Ears/Nose/Throat/Neck No dental pain 06/2016 Ears/Nose/Throat/Neck No dizziness 2015 Ears/Nose/Throat/Neck No dysphagia 2015 Ears/Nose/Throat/Neck No headache 2015 Ears/Nose/Throat/Neck No hearing loss 06/2016 Ears/Nose/Throat/Neck No nasal allergies 03/14/2016 Ears/Nose/Throat/Neck No sore throat 06/2016 Ears/Nose/Throat/Neck No postnasal drip 03/14/2016 Ears/Nose/Throat/Neck No sinus congestion 03/14/2016 Cardiovascular No chest pain/pressure 06/2016 Cardiovascular No dyspnea 03/14/2016 Cardiovascular No edema 03/14/2016 Cardiovascular No exercise intolerance Cardiovascular No fatigue 03/14/2016 Cardiovascular No near-syncope/dizziness 03/14/2016 Respiratory No chest tightness 2015 Respiratory No cough 03/14/2016 Respiratory No dyspnea 03/14/2016 Respiratory No pedal edema 03/14/2016 Gastrointestinal abdominal pain 2015 Gastrointestinal No constipation 2015 Gastrointestinal No diarrhea 03/14/2016 Gastrointestinal gastroesophageal reflux 03/14/2016 Gastrointestinal No nausea 03/14/2016 Gastrointestinal No vomiting 03/14/2016 Musculoskeletal No stiffness 03/14/2016 Musculoskeletal No swelling 03/14/2016 Musculoskeletal No muscle weakness 2015 Musculoskeletal No myalgias 03/14/2016 Dermatologic No rash 03/14/2016 Dermatologic No sores 03/14/2016 Dermatologic No scar 03/14/2016 Neurologic No dizziness 03/14/2016 Neurologic No headache 03/14/2016 Neurologic No neck pain 03/14/2016 Neurologic No syncope 03/14/2016 Psychiatric No anxiety 03/14/2016 Psychiatric No depression 03/14/2016 Cardiovascular hypertension 03/14/2016 Constitutional No recent illness 2015 Constitutional No chills 02/08/2016 Constitutional No fatigue 02/08/2016 Constitutional No fever 02/08/2016 Constitutional No insomnia 02/08/2016 Constitutional No malaise 02/08/2016 Eyes No blindness 02/08/2016 Eyes No vision change 02/08/2016 Ears/Nose/Throat/Neck No dental pain 02/2016 Ears/Nose/Throat/Neck No dizziness 2015 Ears/Nose/Throat/Neck No dysphagia 2015 Ears/Nose/Throat/Neck No headache 2015 Ears/Nose/Throat/Neck No hearing loss 02/2016 Ears/Nose/Throat/Neck No nasal allergies 02/08/2016 Ears/Nose/Throat/Neck No sore throat 02/2016 Ears/Nose/Throat/Neck No postnasal drip 02/08/2016 Ears/Nose/Throat/Neck No sinus congestion 02/08/2016 Cardiovascular No chest pain/pressure 02/2016 Cardiovascular No dyspnea 02/08/2016 Cardiovascular No edema 02/08/2016 Cardiovascular No exercise intolerance Cardiovascular No fatigue 02/08/2016 Cardiovascular No near-syncope/dizziness 02/08/2016 Respiratory No chest tightness 2015 Respiratory No cough 02/08/2016 Respiratory No dyspnea 02/08/2016 Respiratory No pedal edema 02/08/2016 Gastrointestinal No abdominal pain 2015 Gastrointestinal No constipation 2015 Gastrointestinal No diarrhea 02/08/2016 Gastrointestinal No gastroesophageal reflux 02/08/2016 Gastrointestinal No nausea 02/08/2016 Gastrointestinal No vomiting 02/08/2016 Genitourinary/Nephrology No dysuria 02/07 Genitourinary/Nephrology No nocturia 02/2016 Genitourinary/Nephrology No urinary incontinence 02/08/2016 Musculoskeletal No stiffness 02/08/2016 Musculoskeletal No swelling 02/08/2016 Musculoskeletal No muscle weakness 2015 Musculoskeletal No myalgias 02/08/2016 Dermatologic No rash 02/08/2016 Dermatologic No sores 02/08/2016 Dermatologic No scar 02/08/2016 Neurologic No dizziness 02/08/2016 Neurologic No headache 02/08/2016 Neurologic No neck pain 02/08/2016 Neurologic No syncope 02/08/2016 Psychiatric No anxiety 02/08/2016 Psychiatric No depression 02/08/2016 Physical Exam Exam Name System Name Item Name Status Result Effective Dates Notes Full Exam - General 1994 Constitutional general appearance Development: well developed 02/09/2017 None Full Exam - General 1994 Constitutional general appearance Development: appears stated age 0802/09/2017 None Full Exam - General 1994 Constitutional general appearance Hygiene/Attention to Grooming: good hygiene 02/09/2017 None Full Exam - General 1994 Eyes conjunctiva /eyelids Overall: conjunctiva clear 02/09/2017 None Full Exam - General 1994 Eyes conjunctiva /eyelids Overall: cornea clear 02/09/2017 None Full Exam - General 1994 Eyes conjunctiva /eyelids Overall: eyelids normal 02/09/2017 None Full Exam - General 1994 Eyes pupils and irises Overall: pupils equal, round, reactive to light and accomodation 02/09/2017 None Full Exam - General 1994 Ears/Nose/Throat otoscopic exam Overall: external auditory canals clear 02/09/2017 None Full Exam - General 1994 Ears/Nose/Throat otoscopic exam Overall: tympanic membranes clear 02/09/2017 None Full Exam - General 1994 Ears/Nose/Throat lips/teeth/gingiva Overall: benign lips 02/09/2017 None Full Exam - General 1994 Ears/Nose/Throat lips/teeth/gingiva Overall: normal dentition 02/09/2017 None Full Exam - General 1994 Ears/Nose/Throat oral cavity/pharynx/larynx Overall: oral mucosa clear 02/09/2017 None Full Exam - General 1994 Ears/Nose/Throat oral cavity/pharynx/larynx Overall: oropharyngeal mucosa clear 02/09/2017 None Full Exam - General 1994 Ears/Nose/Throat oral cavity/pharynx/larynx Overall: hypopharynx benign 02/09/2017 None Full Exam - General 1994 Ears/Nose/Throat oral cavity/pharynx/larynx Overall: no masses 02/09/2017 None Full Exam - General 1994 Respiratory auscultation Overall: breath sounds clear bilaterally 02/09/2017 None Full Exam - General 1994 Respiratory respiratory effort/rhythm Overall: no retractions 02/09/2017 None Full Exam - General 1994 Respiratory respiratory effort/rhythm Overall: normal rate 02/09/2017 None Full Exam - General 1994 Cardiovascular extremities Overall: no clubbing 02/09/2017 None Full Exam - General 1994 Cardiovascular auscultation of heart Overall: regular rate 02/09/2017 None Full Exam - General 1994 Cardiovascular auscultation of heart Overall: normal heart sounds 02/09/2017 None Full Exam - General 1994 Abdomen abdominal exam Overall: no tenderness 02/09/2017 None Full Exam - General 1994 Abdomen abdominal exam Overall: normal bowel sounds 02/09/2017 None Full Exam - General 1994 Lymphatic neck nodes Overall: anterior cervical chain benign 02/09/2017 None Full Exam - General 1994 Lymphatic neck nodes Overall: posterior cervical chain benign 02/09/2017 None Full Exam - General 1994 Musculoskeletal spine, ribs and pelvis Overall: spine benign 02/09/2017 None Full Exam - General 1994 Musculoskeletal spine, ribs and pelvis Overall: sacroiliac joint benign 02/09/2017 None Full Exam - General 1994 Musculoskeletal spine, ribs and pelvis Overall: good posture 02/09/2017 None Full Exam - General 1994 Musculoskeletal head and neck Overall: head atraumatic 02/09/2017 None Full Exam - General 1994 Musculoskeletal head and neck Overall: cervical spine benign 02/09/2017 None Full Exam - General 1994 Integument inspection of skin Overall: few scattered moles, no gross abnormalities 02/09/2017 None Full Exam - General 1994 Neurologic deep tendon reflexes Overall: deep tendon reflexes intact 02/09/2017 None Full Exam - General 1994 Neurologic cranial nerves Overall: crainial nerves 2 - 12 grossly intact 02/09/2017 None Full Exam - General 1994 Psychiatric orientation/consciousness Overall: oriented to person, place and time 02/09/2017 None Full Exam - General 1994 Psychiatric mood and affect Overall: normal mood and affect 02/09/2017 None Full Exam - General 1994 Constitutional general appearance Development: well developed 11/09/2016 None Full Exam - General 1994 Constitutional general appearance Development: appears stated age 0511/09/2016 None Full Exam - General 1994 Constitutional general appearance Hygiene/Attention to Grooming: good hygiene 11/09/2016 None Full Exam - General 1994 Eyes conjunctiva /eyelids Overall: conjunctiva clear 11/09/2016 None Full Exam - General 1994 Eyes conjunctiva /eyelids Overall: cornea clear 11/09/2016 None Full Exam - General 1994 Eyes conjunctiva /eyelids Overall: eyelids normal 11/09/2016 None Full Exam - General 1994 Eyes pupils and irises Overall: pupils equal, round, reactive to light and accomodation 11/09/2016 None Full Exam - General 1994 Ears/Nose/Throat otoscopic exam Overall: external auditory canals clear 11/09/2016 None Full Exam - General 1994 Ears/Nose/Throat otoscopic exam Overall: tympanic membranes clear 11/09/2016 None Full Exam - General 1994 Ears/Nose/Throat lips/teeth/gingiva Overall: benign lips 11/09/2016 None Full Exam - General 1994 Ears/Nose/Throat lips/teeth/gingiva Overall: normal dentition 11/09/2016 None Full Exam - General 1994 Ears/Nose/Throat oral cavity/pharynx/larynx Overall: oral mucosa clear 11/09/2016 None Full Exam - General 1994 Ears/Nose/Throat oral cavity/pharynx/larynx Overall: oropharyngeal mucosa clear 11/09/2016 None Full Exam - General 1994 Ears/Nose/Throat oral cavity/pharynx/larynx Overall: hypopharynx benign 11/09/2016 None Full Exam - General 1994 Ears/Nose/Throat oral cavity/pharynx/larynx Overall: no masses 11/09/2016 None Full Exam - General 1994 Respiratory auscultation Overall: breath sounds clear bilaterally 11/09/2016 None Full Exam - General 1994 Respiratory respiratory effort/rhythm Overall: no retractions 11/09/2016 None Full Exam - General 1994 Respiratory respiratory effort/rhythm Overall: normal rate 11/09/2016 None Full Exam - General 1994 Cardiovascular extremities Overall: no clubbing 11/09/2016 None Full Exam - General 1994 Cardiovascular auscultation of heart Overall: regular rate 11/09/2016 None Full Exam - General 1994 Cardiovascular auscultation of heart Overall: normal heart sounds 11/09/2016 None Full Exam - General 1994 Abdomen abdominal exam Overall: no tenderness 11/09/2016 None Full Exam - General 1994 Abdomen abdominal exam Overall: normal bowel sounds 11/09/2016 None Full Exam - General 1994 Lymphatic neck nodes Overall: anterior cervical chain benign 11/09/2016 None Full Exam - General 1994 Lymphatic neck nodes Overall: posterior cervical chain benign 11/09/2016 None Full Exam - General 1994 Musculoskeletal spine, ribs and pelvis Overall: good posture 11/09/2016 None Full Exam - General 1994 Musculoskeletal head and neck Overall: head atraumatic 11/09/2016 None Full Exam - General 1994 Musculoskeletal head and neck Overall: cervical spine benign 11/09/2016 None Full Exam - General 1994 Neurologic deep tendon reflexes Overall: deep tendon reflexes intact 11/09/2016 None Full Exam - General 1994 Neurologic cranial nerves Overall: crainial nerves 2 - 12 grossly intact 11/09/2016 None Full Exam - General 1994 Psychiatric orientation/consciousness Overall: oriented to person, place and time 11/09/2016 None Full Exam - General 1994 Psychiatric mood and affect Overall: normal mood and affect 11/09/2016 None Full Exam - General 1994 Constitutional general appearance Development: well developed 07/12/2016 None Full Exam - General 1994 Constitutional general appearance Development: appears stated age 0107/12/2016 None Full Exam - General 1994 Constitutional general appearance Hygiene/Attention to Grooming: good hygiene 07/12/2016 None Full Exam - General 1994 Eyes conjunctiva /eyelids Overall: conjunctiva clear 07/12/2016 None Full Exam - General 1994 Eyes conjunctiva /eyelids Overall: cornea clear 07/12/2016 None Full Exam - General 1994 Eyes conjunctiva /eyelids Overall: eyelids normal 07/12/2016 None Full Exam - General 1994 Eyes pupils and irises Overall: pupils equal, round, reactive to light and accomodation 07/12/2016 None Full Exam - General 1994 Ears/Nose/Throat otoscopic exam Overall: external auditory canals clear 07/12/2016 None Full Exam - General 1994 Ears/Nose/Throat otoscopic exam Overall: tympanic membranes clear 07/12/2016 None Full Exam - General 1994 Ears/Nose/Throat lips/teeth/gingiva Overall: benign lips 07/12/2016 None Full Exam - General 1994 Ears/Nose/Throat lips/teeth/gingiva Overall: normal dentition 07/12/2016 None Full Exam - General 1994 Ears/Nose/Throat oral cavity/pharynx/larynx Overall: oral mucosa clear 07/12/2016 None Full Exam - General 1994 Ears/Nose/Throat oral cavity/pharynx/larynx Overall: oropharyngeal mucosa clear 07/12/2016 None Full Exam - General 1994 Ears/Nose/Throat oral cavity/pharynx/larynx Overall: hypopharynx benign 07/12/2016 None Full Exam - General 1994 Ears/Nose/Throat oral cavity/pharynx/larynx Overall: no masses 07/12/2016 None Full Exam - General 1994 Respiratory auscultation Overall: breath sounds clear bilaterally 07/12/2016 None Full Exam - General 1994 Respiratory respiratory effort/rhythm Overall: no retractions 07/12/2016 None Full Exam - General 1994 Respiratory respiratory effort/rhythm Overall: normal rate 07/12/2016 None Full Exam - General 1994 Cardiovascular extremities Overall: no clubbing 07/12/2016 None Full Exam - General 1994 Cardiovascular auscultation of heart Overall: regular rate 07/12/2016 None Full Exam - General 1994 Cardiovascular auscultation of heart Overall: normal heart sounds 07/12/2016 None Full Exam - General 1994 Abdomen abdominal exam Overall: no tenderness 07/12/2016 None Full Exam - General 1994 Abdomen abdominal exam Overall: normal bowel sounds 07/12/2016 None Full Exam - General 1994 Lymphatic neck nodes Overall: anterior cervical chain benign 07/12/2016 None Full Exam - General 1994 Lymphatic neck nodes Overall: posterior cervical chain benign 07/12/2016 None Full Exam - General 1994 Musculoskeletal spine, ribs and pelvis Overall: spine benign 07/12/2016 None Full Exam - General 1994 Musculoskeletal spine, ribs and pelvis Overall: sacroiliac joint benign 07/12/2016 None Full Exam - General 1994 Musculoskeletal spine, ribs and pelvis Overall: good posture 07/12/2016 None Full Exam - General 1994 Musculoskeletal head and neck Overall: head atraumatic 07/12/2016 None Full Exam - General 1994 Musculoskeletal head and neck Overall: cervical spine benign 07/12/2016 None Full Exam - General 1994 Neurologic deep tendon reflexes Overall: deep tendon reflexes intact 07/12/2016 None Full Exam - General 1994 Neurologic cranial nerves Overall: crainial nerves 2 - 12 grossly intact 07/12/2016 None Full Exam - General 1994 Psychiatric orientation/consciousness Overall: oriented to person, place and time 07/12/2016 None Full Exam - General 1994 Psychiatric mood and affect Overall: normal mood and affect 07/12/2016 None Full Exam - General 1994 Constitutional general appearance Development: well developed 04/11/2016 None Full Exam - General 1994 Constitutional general appearance Development: appears stated age 1004/11/2016 None Full Exam - General 1994 Constitutional general appearance Hygiene/Attention to Grooming: good hygiene 04/11/2016 None Full Exam - General 1994 Eyes conjunctiva /eyelids Overall: conjunctiva clear 04/11/2016 None Full Exam - General 1994 Eyes conjunctiva /eyelids Overall: cornea clear 04/11/2016 None Full Exam - General 1994 Eyes conjunctiva /eyelids Overall: eyelids normal 04/11/2016 None Full Exam - General 1994 Eyes pupils and irises Overall: pupils equal, round, reactive to light and accomodation 04/11/2016 None Full Exam - General 1994 Ears/Nose/Throat otoscopic exam Overall: external auditory canals clear 04/11/2016 None Full Exam - General 1994 Ears/Nose/Throat otoscopic exam Overall: tympanic membranes clear 04/11/2016 None Full Exam - General 1994 Ears/Nose/Throat lips/teeth/gingiva Overall: benign lips 04/11/2016 None Full Exam - General 1994 Ears/Nose/Throat lips/teeth/gingiva Overall: normal dentition 04/11/2016 None Full Exam - General 1994 Ears/Nose/Throat oral cavity/pharynx/larynx Overall: oral mucosa clear 04/11/2016 None Full Exam - General 1994 Ears/Nose/Throat oral cavity/pharynx/larynx Overall: oropharyngeal mucosa clear 04/11/2016 None Full Exam - General 1994 Ears/Nose/Throat oral cavity/pharynx/larynx Overall: hypopharynx benign 04/11/2016 None Full Exam - General 1994 Ears/Nose/Throat oral cavity/pharynx/larynx Overall: no masses 04/11/2016 None Full Exam - General 1994 Respiratory auscultation Overall: breath sounds clear bilaterally 04/11/2016 None Full Exam - General 1994 Respiratory respiratory effort/rhythm Overall: no retractions 04/11/2016 None Full Exam - General 1994 Respiratory respiratory effort/rhythm Overall: normal rate 04/11/2016 None Full Exam - General 1994 Cardiovascular extremities Overall: no clubbing 04/11/2016 None Full Exam - General 1994 Cardiovascular auscultation of heart Overall: regular rate 04/11/2016 None Full Exam - General 1994 Cardiovascular auscultation of heart Overall: normal heart sounds 04/11/2016 None Full Exam - General 1994 Abdomen abdominal exam Overall: no tenderness 04/11/2016 None Full Exam - General 1994 Abdomen abdominal exam Overall: normal bowel sounds 04/11/2016 None Full Exam - General 1994 Lymphatic neck nodes Overall: anterior cervical chain benign 04/11/2016 None Full Exam - General 1994 Lymphatic neck nodes Overall: posterior cervical chain benign 04/11/2016 None Full Exam - General 1994 Musculoskeletal spine, ribs and pelvis Overall: spine benign 04/11/2016 None Full Exam - General 1994 Musculoskeletal spine, ribs and pelvis Overall: sacroiliac joint benign 04/11/2016 None Full Exam - General 1994 Musculoskeletal spine, ribs and pelvis Overall: good posture 04/11/2016 None Full Exam - General 1994 Musculoskeletal head and neck Overall: head atraumatic 04/11/2016 None Full Exam - General 1994 Musculoskeletal head and neck Overall: cervical spine benign 04/11/2016 None Full Exam - General 1994 Integument inspection of skin Overall: few scattered moles, no gross abnormalities 04/11/2016 None Full Exam - General 1994 Neurologic deep tendon reflexes Overall: deep tendon reflexes intact 04/11/2016 None Full Exam - General 1994 Neurologic cranial nerves Overall: crainial nerves 2 - 12 grossly intact 04/11/2016 None Full Exam - General 1994 Psychiatric orientation/consciousness Overall: oriented to person, place and time 04/11/2016 None Full Exam - General 1994 Psychiatric mood and affect Overall: normal mood and affect 04/11/2016 None Full Exam - General 1994 Constitutional general appearance Development: well developed 03/14/2016 None Full Exam - General 1994 Constitutional general appearance Development: appears stated age 0903/14/2016 None Full Exam - General 1994 Constitutional general appearance Hygiene/Attention to Grooming: good hygiene 03/14/2016 None Full Exam - General 1994 Eyes conjunctiva /eyelids Overall: conjunctiva clear 03/14/2016 None Full Exam - General 1994 Eyes conjunctiva /eyelids Overall: cornea clear 03/14/2016 None Full Exam - General 1994 Eyes conjunctiva /eyelids Overall: eyelids normal 03/14/2016 None Full Exam - General 1994 Eyes pupils and irises Overall: pupils equal, round, reactive to light and accomodation 03/14/2016 None Full Exam - General 1994 Ears/Nose/Throat otoscopic exam Overall: external auditory canals clear 03/14/2016 None Full Exam - General 1994 Ears/Nose/Throat otoscopic exam Overall: tympanic membranes clear 03/14/2016 None Full Exam - General 1994 Ears/Nose/Throat lips/teeth/gingiva Overall: benign lips 03/14/2016 None Full Exam - General 1994 Ears/Nose/Throat lips/teeth/gingiva Overall: normal dentition 03/14/2016 None Full Exam - General 1994 Ears/Nose/Throat oral cavity/pharynx/larynx Overall: oral mucosa clear 03/14/2016 None Full Exam - General 1994 Ears/Nose/Throat oral cavity/pharynx/larynx Overall: oropharyngeal mucosa clear 03/14/2016 None Full Exam - General 1994 Ears/Nose/Throat oral cavity/pharynx/larynx Overall: hypopharynx benign 03/14/2016 None Full Exam - General 1994 Ears/Nose/Throat oral cavity/pharynx/larynx Overall: no masses 03/14/2016 None Full Exam - General 1994 Respiratory auscultation Overall: breath sounds clear bilaterally 03/14/2016 None Full Exam - General 1994 Respiratory respiratory effort/rhythm Overall: no retractions 03/14/2016 None Full Exam - General 1994 Respiratory respiratory effort/rhythm Overall: normal rate 03/14/2016 None Full Exam - General 1994 Cardiovascular extremities Overall: no clubbing 03/14/2016 None Full Exam - General 1994 Cardiovascular auscultation of heart Overall: regular rate 03/14/2016 None Full Exam - General 1994 Cardiovascular auscultation of heart Overall: normal heart sounds 03/14/2016 None Full Exam - General 1994 Abdomen abdominal exam Overall: no tenderness 03/14/2016 None Full Exam - General 1994 Abdomen abdominal exam Overall: normal bowel sounds 03/14/2016 None Full Exam - General 1994 Lymphatic neck nodes Overall: anterior cervical chain benign 03/14/2016 None Full Exam - General 1994 Lymphatic neck nodes Overall: posterior cervical chain benign 03/14/2016 None Full Exam - General 1994 Musculoskeletal spine, ribs and pelvis Overall: spine benign 03/14/2016 None Full Exam - General 1994 Musculoskeletal spine, ribs and pelvis Overall: sacroiliac joint benign 03/14/2016 None Full Exam - General 1994 Musculoskeletal spine, ribs and pelvis Overall: good posture 03/14/2016 None Full Exam - General 1994 Musculoskeletal head and neck Overall: head atraumatic 03/14/2016 None Full Exam - General 1994 Musculoskeletal head and neck Overall: cervical spine benign 03/14/2016 None Full Exam - General 1994 Integument inspection of skin Overall: few scattered moles, no gross abnormalities 03/14/2016 None Full Exam - General 1994 Neurologic deep tendon reflexes Overall: deep tendon reflexes intact 03/14/2016 None Full Exam - General 1994 Neurologic cranial nerves Overall: crainial nerves 2 - 12 grossly intact 03/14/2016 None Full Exam - General 1994 Psychiatric orientation/consciousness Overall: oriented to person, place and time 03/14/2016 None Full Exam - General 1994 Psychiatric mood and affect Overall: normal mood and affect 03/14/2016 None Full Exam - General 1994 Constitutional general appearance Development: well developed 02/08/2016 None Full Exam - General 1994 Constitutional general appearance Development: appears stated age 0802/08/2016 None Full Exam - General 1994 Constitutional general appearance Hygiene/Attention to Grooming: good hygiene 02/08/2016 None Full Exam - General 1994 Eyes conjunctiva /eyelids Overall: conjunctiva clear 02/08/2016 None Full Exam - General 1994 Eyes conjunctiva /eyelids Overall: cornea clear 02/08/2016 None Full Exam - General 1994 Eyes conjunctiva /eyelids Overall: eyelids normal 02/08/2016 None Full Exam - General 1994 Eyes pupils and irises Overall: pupils equal, round, reactive to light and accomodation 02/08/2016 None Full Exam - General 1994 Ears/Nose/Throat otoscopic exam Overall: external auditory canals clear 02/08/2016 None Full Exam - General 1994 Ears/Nose/Throat otoscopic exam Overall: tympanic membranes clear 02/08/2016 None Full Exam - General 1994 Ears/Nose/Throat lips/teeth/gingiva Overall: benign lips 02/08/2016 None Full Exam - General 1994 Ears/Nose/Throat lips/teeth/gingiva Overall: normal dentition 02/08/2016 None Full Exam - General 1994 Ears/Nose/Throat oral cavity/pharynx/larynx Overall: oral mucosa clear 02/08/2016 None Full Exam - General 1994 Ears/Nose/Throat oral cavity/pharynx/larynx Overall: oropharyngeal mucosa clear 02/08/2016 None Full Exam - General 1994 Ears/Nose/Throat oral cavity/pharynx/larynx Overall: hypopharynx benign 02/08/2016 None Full Exam - General 1994 Ears/Nose/Throat oral cavity/pharynx/larynx Overall: no masses 02/08/2016 None Full Exam - General 1994 Respiratory auscultation Overall: breath sounds clear bilaterally 02/08/2016 None Full Exam - General 1994 Respiratory respiratory effort/rhythm Overall: no retractions 02/08/2016 None Full Exam - General 1994 Respiratory respiratory effort/rhythm Overall: normal rate 02/08/2016 None Full Exam - General 1994 Cardiovascular extremities Overall: no clubbing 02/08/2016 None Full Exam - General 1994 Cardiovascular auscultation of heart Overall: regular rate 02/08/2016 None Full Exam - General 1994 Cardiovascular auscultation of heart Overall: normal heart sounds 02/08/2016 None Full Exam - General 1994 Abdomen abdominal exam Overall: no tenderness 02/08/2016 None Full Exam - General 1994 Abdomen abdominal exam Overall: normal bowel sounds 02/08/2016 None Full Exam - General 1994 Lymphatic neck nodes Overall: anterior cervical chain benign 02/08/2016 None Full Exam - General 1994 Lymphatic neck nodes Overall: posterior cervical chain benign 02/08/2016 None Full Exam - General 1994 Musculoskeletal spine, ribs and pelvis Overall: spine benign 02/08/2016 None Full Exam - General 1994 Musculoskeletal spine, ribs and pelvis Overall: sacroiliac joint benign 02/08/2016 None Full Exam - General 1994 Musculoskeletal spine, ribs and pelvis Overall: good posture 02/08/2016 None Full Exam - General 1994 Musculoskeletal head and neck Overall: head atraumatic 02/08/2016 None Full Exam - General 1994 Musculoskeletal head and neck Overall: cervical spine benign 02/08/2016 None Full Exam - General 1994 Integument inspection of skin Overall: few scattered moles, no gross abnormalities 02/08/2016 None Full Exam - General 1994 Neurologic deep tendon reflexes Overall: deep tendon reflexes intact 02/08/2016 None Full Exam - General 1994 Neurologic cranial nerves Overall: crainial nerves 2 - 12 grossly intact 02/08/2016 None Full Exam - General 1994 Psychiatric orientation/consciousness Overall: oriented to person, place and time 02/08/2016 None Full Exam - General 1994 Psychiatric mood and affect Overall: normal mood and affect 02/08/2016 None Procedures Procedure Codes Date TOBACCO-USE SUBSTANCE ADDICTION COORDINATOR 3-[address]: 022672052 CPT-4: G0436 02/09/2017 PRESCRIP TRANSMIT VIA ERX SY CPT-4: G8553 02/09/2017 TOBACCO-USE SUBSTANCE ADDICTION COORDINATOR 3-[address]: 829987990 CPT-4: G0436 04/11/2016 ADMIN INFLUENZA VIRUS VAC CPT-4: G0008 04/11/2016 FLU VACC 4 NAINA 3 YRS PLUS IM SNOMED CT: 43010673 CPT-4: 38333 04/11/2016 PRESCRIP TRANSMIT VIA ERX SY CPT-4: G8553 04/11/2016 TOBACCO-USE SUBSTANCE ADDICTION COORDINATOR 3-[address]: 776143585 CPT-4: G0436 02/08/2016 Vital Signs Date Vital 02/09/2017 Blood Pressure 1: 130/80 Code : 8480-6 BMI: 29.1 Code : 10763-3 Heart Rate 1 : 64 bpm Height: 5' SpO2: 95% Weight: 149 lbs 11/09/2016 Blood Pressure 1: 138/68 Code : 8480-6 BMI: 30.4 Code : 29446-5 Heart Rate 1 : 71 bpm Height: 5' SpO2: 96% Weight: 155 lbs 8 oz 07/12/2016 Blood Pressure 1: 138/68 Code : 8480-6 BMI: 31.8 Code : 70949-7 Heart Rate 1 : 72 bpm Height: 5' SpO2: 96% Weight: 163 lbs 04/11/2016 Blood Pressure 1: 138/74 Code : 8480-6 BMI: 34.0 Code : 60491-6 Heart Rate 1 : 79 bpm Height: 5' SpO2: 94% Weight: 174 lbs 03/14/2016 Blood Pressure 1: 142/78 Code : 8480-6 BMI: 35.6 Code : 45649-3 Heart Rate 1 : 79 bpm Height: 5' SpO2: 94% Weight: 182 lbs 8 oz 02/08/2016 Blood Pressure 1: 152/62 Code : 8480-6 BMI: 36.1 Code : 80389-5 Heart Rate 1 : 77 bpm Height: 5' SpO2: 95% Weight: 185 lbs Functional Status No Functional Status data History of Present Illness Symptom Name Status Result Effective Date Notes hypertension Quality primary hypertension 02/09/2017 None hypertension Onset and Resolution ongoing 02/09/2017 None hypertension Onset of Symptom during adulthood 02/09/2017 None hypertension Alleviating Factors medication 02/09/2017 None hypertension Pertinent Findings Denies dizziness 02/09/2017 None hypertension Pertinent Findings Denies dyspnea 02/09/2017 None hypertension Pertinent Findings Denies edema 02/09/2017 None diabetes mellitus Quality non-insulin dependent 02/09/2017 None diabetes mellitus Alleviating Factors medication 02/09/2017 None diabetes mellitus Alleviating Factors diet 02/09/2017 None diabetes mellitus Alleviating Factors exercise 02/09/2017 None diabetes mellitus Exacerbating Factors diet 02/09/2017 None diabetes mellitus Pertinent Findings Denies nausea 02/09/2017 None hypertension Blood Pressure Values not checking blood pressure at home 02/09/2017 None diabetes mellitus Glucose monitoring occasional glucose testing 02/09/2017 twice a week hypertension Onset and Resolution ongoing 11/09/2016 None hypertension Onset of Symptom during adulthood 11/09/2016 None hypertension Blood Pressure Values pt checking blood pressure - see scanned document 11/09/2016 -Checks occasionally hypertension Alleviating Factors medication 11/09/2016 None hypertension Pertinent Findings Denies dizziness 11/09/2016 None hypertension Pertinent Findings Denies dyspnea 11/09/2016 None hypertension Pertinent Findings Denies edema 11/09/2016 None diabetes mellitus Quality non-insulin dependent 11/09/2016 None diabetes mellitus Alleviating Factors medication 11/09/2016 None diabetes mellitus Alleviating Factors diet 11/09/2016 None diabetes mellitus Alleviating Factors exercise 11/09/2016 None diabetes mellitus Exacerbating Factors diet 11/09/2016 None diabetes mellitus Pertinent Findings Denies nausea 11/09/2016 None hypertension Quality primary hypertension 11/09/2016 None diabetes mellitus Glucose monitoring daily 11/09/2016 None hypertension Onset and Resolution ongoing 07/12/2016 None hypertension Onset of Symptom during adulthood 07/12/2016 None hypertension Blood Pressure Values pt checking blood pressure - see scanned document 07/12/2016 -Checks occasionally - average blood glucose over the past month is about 90-95 hypertension Alleviating Factors medication 07/12/2016 None hypertension Pertinent Findings Denies dizziness 07/12/2016 None hypertension Pertinent Findings Denies dyspnea 07/12/2016 None hypertension Pertinent Findings Denies edema 07/12/2016 None diabetes mellitus Quality non-insulin dependent 07/12/2016 None diabetes mellitus Alleviating Factors medication 07/12/2016 None diabetes mellitus Alleviating Factors diet 07/12/2016 None diabetes mellitus Alleviating Factors exercise 07/12/2016 None diabetes mellitus Exacerbating Factors diet 07/12/2016 None diabetes mellitus Pertinent Findings Denies nausea 07/12/2016 None diabetes mellitus Test results Pt checking blood glucose at home, see scanned readings 2016 None diabetes mellitus Glucose monitoring daily 07/12/2016 None hypertension Onset and Resolution ongoing 04/11/2016 None hypertension Onset of Symptom during adulthood 04/11/2016 None hypertension Alleviating Factors medication 04/11/2016 None hypertension Pertinent Findings Denies dizziness 04/11/2016 None hypertension Pertinent Findings Denies dyspnea 04/11/2016 None hypertension Pertinent Findings Denies edema 04/11/2016 None diabetes mellitus Quality non-insulin dependent 04/11/2016 None diabetes mellitus Glucose monitoring twice daily 04/11/2016 None diabetes mellitus Test results Pt checking blood glucose at home, see scanned readings 2015 None hypertension Blood Pressure Values pt checking blood pressure - see scanned document 04/11/2016 None diabetes mellitus Alleviating Factors medication 04/11/2016 None diabetes mellitus Exacerbating Factors diet 04/11/2016 None diabetes mellitus Alleviating Factors diet 04/11/2016 None diabetes mellitus Alleviating Factors exercise 04/11/2016 None diabetes mellitus Pertinent Findings Denies nausea 04/11/2016 None hypertension Onset and Resolution ongoing 03/14/2016 None hypertension Onset of Symptom during adulthood 03/14/2016 None hypertension Blood Pressure Values patient checking blood pressure at home - did not bring in readings 03/14/2016 -Checks occasionally hypertension Pertinent Findings Denies dizziness 03/14/2016 None hypertension Pertinent Findings Denies dyspnea 03/14/2016 None hypertension Pertinent Findings Denies edema 03/14/2016 None hypertension Alleviating Factors medication 03/14/2016 None hyperlipidemia Onset and Resolution gradual in onset 02/08/2016 None hyperlipidemia Onset and Resolution ongoing 02/08/2016 None hyperlipidemia Onset of Symptom during adulthood 02/08/2016 None hyperlipidemia Alleviating Factors medication 02/08/2016 None hyperlipidemia Exacerbating Factors diet 02/08/2016 None hyperlipidemia Severity moderate 02/08/2016 None hyperlipidemia Significant Medications statin 02/08/2016 None Advance Directives No Advance Directive data Encounters Encounter Performer Location Codes ([id number]) [id number] EST. PATIENT, LEVEL IV Diagnosis: Type 2 diabetes mellitus without complications[ICD10: E11.9] Diagnosis: Essential (primary) hypertension[ICD10: I10] Diagnosis: Mixed hyperlipidemia[ICD10: E78.2] Diagnosis: Tobacco use[ICD10: Z72.0] Diagnosis: Encounter for screening mammogram for malignant neoplasm of breast[ ICD10: Z12.31] [facility] CPT-4: 46003 02/09/2017 ([id number]) 30053 EST. PATIENT, LEVEL IV Diagnosis: Type 2 diabetes mellitus without complications[ICD10: E11.9] Diagnosis: Essential (primary) hypertension[ICD10: I10] Diagnosis: Mixed hyperlipidemia[ICD10: E78.2] Mayte Hanson MD, [facility] CPT-4: 27535 11/09/2016 ([id number]) 54967 EST. PATIENT, LEVEL IV Diagnosis: Type 2 diabetes mellitus without complications[ICD10: E11.9] Diagnosis: Essential (primary) hypertension[ICD10: I10] Diagnosis: Mixed hyperlipidemia[ICD10: E78.2] Mayte Hanson MD, [facility] CPT-4: 75744 07/12/2016 ([id number]) 16772 EST. PATIENT, LEVEL IV Diagnosis: Encounter for immunization[ICD10: Z23] Diagnosis: Type 2 diabetes mellitus without complications[ICD10: E11.9] Diagnosis: Essential (primary) hypertension[ICD10: I10] Diagnosis: Tobacco use[ICD10: Z72.0] Mayte Hanson MD, [facility] CPT-4: 32437 04/11/2016 ([id number]) Miscellaneous no charge Diagnosis: Type 2 diabetes mellitus without complications[ICD10: E11.9] Aylin Hanson MD , [facility] CPT-4: 54772 03/15/2016 ([id number]) 69039 EST. PATIENT, LEVEL IV Diagnosis: Essential (primary) hypertension[ICD10: I10] Diagnosis: Type 2 diabetes mellitus with hyperglycemia[ICD10: E11.65] Diagnosis: Gastro-esophageal reflux disease without esophagitis[ICD10: K21.9] Mayte Hanson MD, [facility] CPT-4: 12263 03/14/2016 ([id number]) Miscellaneous no charge Diagnosis: Impacted cerumen, bilateral[ICD10: H61.23] Aylin Hanson MD, [facility] CPT-4: 08250 02/15/2016 ([id number]) OFFICE VISIT, NEW - LEVEL 4 Diagnosis: Essential (primary) hypertension[ICD10: I10] Diagnosis: Mixed hyperlipidemia[ICD10: E78.2] Diagnosis: Tobacco use[ICD10: Z72.0] Mayte Hanson MD, [facility] CPT-4: 91339 02/08/2016 Plan of Care Planned Activity Notes Codes Status Date Visit Plan: Hypertension - well controlled - continue with current medications, continue with no added salt diet. Pt has been encouraged to exercise daily. The pt has been advised to call the office if there are any acute concerns about change in blood pressure readings at home. Diabetes Mellitus - controlled - per recent FSBS reports. I have recommended for the patient to have follow up labs prior to the next office visit. The patient has been instructed to continue with current medications as previously directed, continue with regular FSBS monitoring to assure continued control of diabetes. Pt to call for any acute concerns, complaints, or if the blood glucose readings are starting to become less controlled. Hyperlipidemia - pt has been counseled about appropriate diet, exercise, and need for low fat food choices. I have discussed the need for the patient to take medications as prescribed. If the patient has negative side effects from the medication, they are to CALL the office and not abruptly discontinue the medication without discussion with a practitioner in the office. We will check labs in 3-6 months for follow up on the patient's chronic medical problem and to assure normal liver response to medications. 02/09/2017 [phone] [id number] (15 min) Moderate 02/09/2017 Patient Education: Patient Medication Summary Completed 02/09/2017 Patient Education: Smoking and Tobacco Addiction Completed 02/09/2017 Visit Plan: Hypertension - well controlled - continue with current medications, continue with no added salt diet. Pt has been encouraged to exercise daily. The pt has been advised to call the office if there are any acute concerns about change in blood pressure readings at home. Diabetes Mellitus - controlled - per recent FSBS reports. I have recommended for the patient to have follow up labs prior to the next office visit. The patient has been instructed to continue with current medications as previously directed, continue with regular FSBS monitoring to assure continued control of diabetes. Pt to call for any acute concerns, complaints, or if the blood glucose readings are starting to become less controlled. Hyperlipidemia - pt has been counseled about appropriate diet, exercise, and need for low fat food choices. I have discussed the need for the patient to take medications as prescribed. If the patient has negative side effects from the medication, they are to CALL the office and not abruptly discontinue the medication without discussion with a practitioner in the office. We will check labs in 3-6 months for follow up on the patient's chronic medical problem and to assure normal liver response to medications. 11/09/2016 Appointment: [facility] [phone] [id number] (15 min) Moderate 11/09/2016 Patient Education: Patient Medication Summary Completed 11/09/2016 Patient Education: Smoking and Tobacco Addiction Completed 11/09/2016 Patient Education: Obesity Completed 11/09/2016 Visit Plan: Diabetes Mellitus - controlled - per recent FSBS reports. I have recommended for the patient to have follow up labs prior to the next office visit. The patient has been instructed to continue with current medications as previously directed, continue with regular FSBS monitoring to assure continued control of diabetes. Pt to call for any acute concerns, complaints, or if the blood glucose readings are starting to become less controlled. Hyperlipidemia - pt has been counseled about appropriate diet, exercise, and need for low fat food choices. I have discussed the need for the patient to take medications as prescribed. If the patient has negative side effects from the medication, they are to CALL the office and not abruptly discontinue the medication without discussion with a practitioner in the office. We will check labs in 3-6 months for follow up on the patient's chronic medical problem and to assure normal liver response to medications. Hypertension - well controlled - continue with current medications, continue with no added salt diet. Pt has been encouraged to exercise daily. The pt has been advised to call the office if there are any acute concerns about change in blood pressure readings at home. 07/12/2016 Appointment: [facility] [phone] [id number] (15 min) Moderate 07/12/2016 Patient Education: Patient Medication Summary Completed 07/12/2016 Patient Education: Smoking and Tobacco Addiction Completed 07/12/2016 Visit Plan: Hypertension - well controlled - continue with current medications, continue with no added salt diet. Pt has been encouraged to exercise daily. The pt has been advised to call the office if there are any acute concerns about change in blood pressure readings at home. Diabetes Mellitus - controlled - per recent FSBS reports. I have recommended for the patient to have follow up labs prior to the next office visit. The patient has been instructed to continue with current medications as previously directed, continue with regular FSBS monitoring to assure continued control of diabetes. Pt to call for any acute concerns, complaints, or if the blood glucose readings are starting to become less controlled. Pt has weight loss - 11# in 2 months - significant improvement. 04/11/2016 Appointment: [facility] [phone] [id number] [place] (15 min) Moderate 04/11/2016 Patient Education: Patient Medication Summary Completed 04/11/2016 Patient Education: Smoking and Tobacco Addiction Completed 04/11/2016 Patient Education: Obesity Completed 04/11/2016 Appointment: Nurse Visit 03/15/2016 Patient Education: Patient Medication Summary Completed 03/15/2016 Patient Education: Smoking and Tobacco Addiction Completed 03/15/2016 Visit Plan: Hypertension - well controlled - continue with current medications, continue with no added salt diet. Pt has been encouraged to exercise daily. The pt has been advised to call the office if there are any acute concerns about change in blood pressure readings at home. Diabetes Mellitus - Uncontrolled - per recent FSBS reports. I have recommended for the patient to have follow up labs prior to the next office visit. The patient has been instructed to continue with current medications as previously directed, continue with regular FSBS monitoring to assure continued control of diabetes. Pt to call for any acute concerns, complaints, or if the blood glucose readings are starting to become less controlled. I have recommended for the patient to follow more strictly to the diabetic diet as discussed in clinic to allow for greater blood glucose control. Esophageal Reflux - the patient has been counseled against excessive intake of caffeine, spicy foods, peppermint, and cinnamon - all of which can exacerbate esophageal reflux. The patient is to take medications as prescribed and call the office if the symptoms are not improving. 03/14/2016 Visit Plan: Hypertension - well controlled - continue with current medications, continue with no added salt diet. Pt has been encouraged to exercise daily. The pt has been advised to call the office if there are any acute concerns about change in blood pressure readings at home. Diabetes Mellitus - Uncontrolled - per recent FSBS reports. I have recommended for the patient to have follow up labs prior to the next office visit. The patient has been instructed to continue with current medications as previously directed, continue with regular FSBS monitoring to assure continued control of diabetes. Pt to call for any acute concerns, complaints, or if the blood glucose readings are starting to become less controlled. I have recommended for the patient to follow more strictly to the diabetic diet as discussed in clinic to allow for greater blood glucose control. Esophageal Reflux - the patient has been counseled against excessive intake of caffeine, spicy foods, peppermint, and cinnamon - all of which can exacerbate esophageal reflux. The patient is to take medications as prescribed and call the office if the symptoms are not improving. 03/14/2016 Appointment: Mayte Hanson [facility]Ptel: [facility] [id number] [place] (15 min) Moderate 03/14/2016 Patient Education: Patient Medication Summary Completed 03/14/2016 Patient Education: Smoking and Tobacco Addiction Completed 03/14/2016 Patient Education: Patient Medication Summary Completed 03/04/2016 Appointment: Nurse Visit 02/15/2016 Patient Education: Patient Medication Summary Completed 02/15/2016 Patient Education: Smoking and Tobacco Addiction Completed 02/15/2016 Visit Plan: Well Adult - pt was counseled about diet, exercise, and encouraged to follow a heart healthy diet and increase activity level. The patient was instructed to RTC yearly for well adult exams and PRN for acute illnesses. The pt was also instructed to have yearly labs for check of cholesterol, thyroid, chem panel, CBC, and renal functioning. Hypertension - uncontrolled - the patient's medications have been modified as documented in the visit note. The patient has been counseled to cut back on salt in diet for a no added salt diet, low fat diet, start an exercise program with low weight bearing exercises and higher aerobic activity for heart health. The patient is to check blood pressure readings as an outpatient and either fax, call, or email the readings to the office next week for practitioner to review. The pt is to call for acute concerns. Hyperlipidemia - pt has been counseled about appropriate diet, exercise, and need for low fat food choices. I have discussed the need for the patient to take medications as prescribed. If the patient has negative side effects from the medication, they are to CALL the office and not abruptly discontinue the medication without discussion with a practitioner in the office. We will check labs in 3-6 months for follow up on the patient's chronic medical problem and to assure normal liver response to medications. 02/08/2016 Visit Plan: Well Adult - pt was counseled about diet, exercise, and encouraged to follow a heart healthy diet and increase activity level. The patient was instructed to RTC yearly for well adult exams and PRN for acute illnesses. The pt was also instructed to have yearly labs for check of cholesterol, thyroid, chem panel, CBC, and renal functioning. Hypertension - uncontrolled - the patient's medications have been modified as documented in the visit note. The patient has been counseled to cut back on salt in diet for a no added salt diet, low fat diet, start an exercise program with low weight bearing exercises and higher aerobic activity for heart health. The patient is to check blood pressure readings as an outpatient and either fax, call, or email the readings to the office next week for practitioner to review. The pt is to call for acute concerns. Hyperlipidemia - pt has been counseled about appropriate diet, exercise, and need for low fat food choices. I have discussed the need for the patient to take medications as prescribed. If the patient has negative side effects from the medication, they are to CALL the office and not abruptly discontinue the medication without discussion with a practitioner in the office. We will check labs in 3-6 months for follow up on the patient's chronic medical problem and to assure normal liver response to medications. 02/08/2016 Visit Plan: Well Adult - pt was counseled about diet, exercise, and encouraged to follow a heart healthy diet and increase activity level. The patient was instructed to RTC yearly for well adult exams and PRN for acute illnesses. The pt was also instructed to have yearly labs for check of cholesterol, thyroid, chem panel, CBC, and renal functioning. Hypertension - uncontrolled - the patient's medications have been modified as documented in the visit note. The patient has been counseled to cut back on salt in diet for a no added salt diet, low fat diet, start an exercise program with low weight bearing exercises and higher aerobic activity for heart health. The patient is to check blood pressure readings as an outpatient and either fax, call, or email the readings to the office next week for practitioner to review. The pt is to call for acute concerns. Hyperlipidemia - pt has been counseled about appropriate diet, exercise, and need for low fat food choices. I have discussed the need for the patient to take medications as prescribed. If the patient has negative side effects from the medication, they are to CALL the office and not abruptly discontinue the medication without discussion with a practitioner in the office. We will check labs in 3-6 months for follow up on the patient's chronic medical problem and to assure normal liver response to medications. 02/08/2016 Visit Plan: Well Adult - pt was counseled about diet, exercise, and encouraged to follow a heart healthy diet and increase activity level. The patient was instructed to RTC yearly for well adult exams and PRN for acute illnesses. The pt was also instructed to have yearly labs for check of cholesterol, thyroid, chem panel, CBC, and renal functioning. Hypertension - uncontrolled - the patient's medications have been modified as documented in the visit note. The patient has been counseled to cut back on salt in diet for a no added salt diet, low fat diet, start an exercise program with low weight bearing exercises and higher aerobic activity for heart health. The patient is to check blood pressure readings as an outpatient and either fax, call, or email the readings to the office next week for practitioner to review. The pt is to call for acute concerns. Hyperlipidemia - pt has been counseled about appropriate diet, exercise, and need for low fat food choices. I have discussed the need for the patient to take medications as prescribed. If the patient has negative side effects from the medication, they are to CALL the office and not abruptly discontinue the medication without discussion with a practitioner in the office. We will check labs in 3-6 months for follow up on the patient's chronic medical problem and to assure normal liver response to medications. 02/08/2016 Visit Plan: Well Adult - pt was counseled about diet, exercise, and encouraged to follow a heart healthy diet and increase activity level. The patient was instructed to RTC yearly for well adult exams and PRN for acute illnesses. The pt was also instructed to have yearly labs for check of cholesterol, thyroid, chem panel, CBC, and renal functioning. Hypertension - uncontrolled - the patient's medications have been modified as documented in the visit note. The patient has been counseled to cut back on salt in diet for a no added salt diet, low fat diet, start an exercise program with low weight bearing exercises and higher aerobic activity for heart health. The patient is to check blood pressure readings as an outpatient and either fax, call, or email the readings to the office next week for practitioner to review. The pt is to call for acute concerns. Hyperlipidemia - pt has been counseled about appropriate diet, exercise, and need for low fat food choices. I have discussed the need for the patient to take medications as prescribed. If the patient has negative side effects from the medication, they are to CALL the office and not abruptly discontinue the medication without discussion with a practitioner in the office. We will check labs in 3-6 months for follow up on the patient's chronic medical problem and to assure normal liver response to medications. 02/08/2016 Patient Education: Patient Medication Summary Completed 02/08/2016 Patient Education: Smoking and Tobacco Addiction Completed 02/08/2016 Instructions Comment . Hypertension - well controlled - continue with current medications, continue with no added salt diet. Pt has been encouraged to exercise daily. The pt has been advised to call the office if there are any acute concerns about change in blood pressure readings at home. Diabetes Mellitus - controlled - per recent FSBS reports. I have recommended for the patient to have follow up labs prior to the next office visit. The patient has been instructed to continue with current medications as previously directed, continue with regular FSBS monitoring to assure continued control of diabetes. Pt to call for any acute concerns, complaints, or if the blood glucose readings are starting to become less controlled. Hyperlipidemia - pt has been counseled about appropriate diet, exercise, and need for low fat food choices. I have discussed the need for the patient to take medications as prescribed. If the patient has negative side effects from the medication, they are to CALL the office and not abruptly discontinue the medication without discussion with a practitioner in the office. We will check labs in 3-6 months for follow up on the patient's chronic medical problem and to assure normal liver response to medications. the diabetic shot is called VICCARLYLE . Hypertension - well controlled - continue with current medications, continue with no added salt diet. Pt has been encouraged to exercise daily. The pt has been advised to call the office if there are any acute concerns about change in blood pressure readings at home. Diabetes Mellitus - controlled - per recent FSBS reports. I have recommended for the patient to have follow up labs prior to the next office visit. The patient has been instructed to continue with current medications as previously directed, continue with regular FSBS monitoring to assure continued control of diabetes. Pt to call for any acute concerns, complaints, or if the blood glucose readings are starting to become less controlled. Hyperlipidemia - pt has been counseled about appropriate diet, exercise, and need for low fat food choices. I have discussed the need for the patient to take medications as prescribed. If the patient has negative side effects from the medication, they are to CALL the office and not abruptly discontinue the medication without discussion with a practitioner in the office. We will check labs in 3-6 months for follow up on the patient's chronic medical problem and to assure normal liver response to medications. get labs the week before your next appt . Well Adult - pt was counseled about diet, exercise, and encouraged to follow a heart healthy diet and increase activity level. The patient was instructed to RTC yearly for well adult exams and PRN for acute illnesses. The pt was also instructed to have yearly labs for check of cholesterol, thyroid, chem panel, CBC, and renal functioning. Hypertension - uncontrolled - the patient's medications have been modified as documented in the visit note. The patient has been counseled to cut back on salt in diet for a no added salt diet, low fat diet, start an exercise program with low weight bearing exercises and higher aerobic activity for heart health. The patient is to check blood pressure readings as an outpatient and either fax , call, or email the readings to the office next week for practitioner to review. The pt is to call for acute concerns. Hyperlipidemia - pt has been counseled about appropriate diet, exercise, and need for low fat food choices. I have discussed the need for the patient to take medications as prescribed. If the patient has negative side effects from the medication, they are to CALL the office and not abruptly discontinue the medication without discussion with a practitioner in the office. We will check labs in 3-6 months for follow up on the patient's chronic medical problem and to assure normal liver response to medications. get labs the week before your next appt . Well Adult - pt was counseled about diet, exercise, and encouraged to follow a heart healthy diet and increase activity level. The patient was instructed to RTC yearly for well adult exams and PRN for acute illnesses. The pt was also instructed to have yearly labs for check of cholesterol, thyroid, chem panel, CBC, and renal functioning. Hypertension - uncontrolled - the patient's medications have been modified as documented in the visit note. The patient has been counseled to cut back on salt in diet for a no added salt diet, low fat diet, start an exercise program with low weight bearing exercises and higher aerobic activity for heart health. The patient is to check blood pressure readings as an outpatient and either fax , call, or email the readings to the office next week for practitioner to review. The pt is to call for acute concerns. Hyperlipidemia - pt has been counseled about appropriate diet, exercise, and need for low fat food choices. I have discussed the need for the patient to take medications as prescribed. If the patient has negative side effects from the medication, they are to CALL the office and not abruptly discontinue the medication without discussion with a practitioner in the office. We will check labs in 3-6 months for follow up on the patient's chronic medical problem and to assure normal liver response to medications. get labs the week before your next appt . Well Adult - pt was counseled about diet, exercise, and encouraged to follow a heart healthy diet and increase activity level. The patient was instructed to RTC yearly for well adult exams and PRN for acute illnesses. The pt was also instructed to have yearly labs for check of cholesterol, thyroid, chem panel, CBC, and renal functioning. Hypertension - uncontrolled - the patient's medications have been modified as documented in the visit note. The patient has been counseled to cut back on salt in diet for a no added salt diet, low fat diet, start an exercise program with low weight bearing exercises and higher aerobic activity for heart health. The patient is to check blood pressure readings as an outpatient and either fax , call, or email the readings to the office next week for practitioner to review. The pt is to call for acute concerns. Hyperlipidemia - pt has been counseled about appropriate diet, exercise, and need for low fat food choices. I have discussed the need for the patient to take medications as prescribed. If the patient has negative side effects from the medication, they are to CALL the office and not abruptly discontinue the medication without discussion with a practitioner in the office. We will check labs in 3-6 months for follow up on the patient's chronic medical problem and to assure normal liver response to medications. get labs the week before your next appt . Well Adult - pt was counseled about diet, exercise, and encouraged to follow a heart healthy diet and increase activity level. The patient was instructed to RTC yearly for well adult exams and PRN for acute illnesses. The pt was also instructed to have yearly labs for check of cholesterol, thyroid, chem panel, CBC, and renal functioning. Hypertension - uncontrolled - the patient's medications have been modified as documented in the visit note. The patient has been counseled to cut back on salt in diet for a no added salt diet, low fat diet, start an exercise program with low weight bearing exercises and higher aerobic activity for heart health. The patient is to check blood pressure readings as an outpatient and either fax , call, or email the readings to the office next week for practitioner to review. The pt is to call for acute concerns. Hyperlipidemia - pt has been counseled about appropriate diet, exercise, and need for low fat food choices. I have discussed the need for the patient to take medications as prescribed. If the patient has negative side effects from the medication, they are to CALL the office and not abruptly discontinue the medication without discussion with a practitioner in the office. We will check labs in 3-6 months for follow up on the patient's chronic medical problem and to assure normal liver response to medications. get labs the week before your next appt . Well Adult - pt was counseled about diet, exercise, and encouraged to follow a heart healthy diet and increase activity level. The patient was instructed to RTC yearly for well adult exams and PRN for acute illnesses. The pt was also instructed to have yearly labs for check of cholesterol, thyroid, chem panel, CBC, and renal functioning. Hypertension - uncontrolled - the patient's medications have been modified as documented in the visit note. The patient has been counseled to cut back on salt in diet for a no added salt diet, low fat diet, start an exercise program with low weight bearing exercises and higher aerobic activity for heart health. The patient is to check blood pressure readings as an outpatient and either fax , call, or email the readings to the office next week for practitioner to review. The pt is to call for acute concerns. Hyperlipidemia - pt has been counseled about appropriate diet, exercise, and need for low fat food choices. I have discussed the need for the patient to take medications as prescribed. If the patient has negative side effects from the medication, they are to CALL the office and not abruptly discontinue the medication without discussion with a practitioner in the office. We will check labs in 3-6 months for follow up on the patient's chronic medical problem and to assure normal liver response to medications. labs done one week before next appt . Hypertension - well controlled - continue with current medications, continue with no added salt diet. Pt has been encouraged to exercise daily. The pt has been advised to call the office if there are any acute concerns about change in blood pressure readings at home. Diabetes Mellitus - controlled - per recent FSBS reports. I have recommended for the patient to have follow up labs prior to the next office visit. The patient has been instructed to continue with current medications as previously directed, continue with regular FSBS monitoring to assure continued control of diabetes. Pt to call for any acute concerns, complaints, or if the blood glucose readings are starting to become less controlled. Pt has weight loss - 11# in 2 months - significant improvement. metformin 500mg pill - take 1/2 pill nightly x 1 week then increase to 1/2 pill twice daily - bring in blood glucose readings in 1 month. . Hypertension - well controlled - continue with current medications, continue with no added salt diet. Pt has been encouraged to exercise daily. The pt has been advised to call the office if there are any acute concerns about change in blood pressure readings at home. Diabetes Mellitus - Uncontrolled - per recent FSBS reports. I have recommended for the patient to have follow up labs prior to the next office visit. The patient has been instructed to continue with current medications as previously directed, continue with regular FSBS monitoring to assure continued control of diabetes. Pt to call for any acute concerns, complaints, or if the blood glucose readings are starting to become less controlled. I have recommended for the patient to follow more strictly to the diabetic diet as discussed in clinic to allow for greater blood glucose control. Esophageal Reflux - the patient has been counseled against excessive intake of caffeine, spicy foods, peppermint, and cinnamon - all of which can exacerbate esophageal reflux. The patient is to take medications as prescribed and call the office if the symptoms are not improving. metformin 500mg pill - take 1/2 pill nightly x 1 week then increase to 1/2 pill twice daily - bring in blood glucose readings in 1 month. . Hypertension - well controlled - continue with current medications, continue with no added salt diet. Pt has been encouraged to exercise daily. The pt has been advised to call the office if there are any acute concerns about change in blood pressure readings at home. Diabetes Mellitus - Uncontrolled - per recent FSBS reports. I have recommended for the patient to have follow up labs prior to the next office visit. The patient has been instructed to continue with current medications as previously directed, continue with regular FSBS monitoring to assure continued control of diabetes. Pt to call for any acute concerns, complaints, or if the blood glucose readings are starting to become less controlled. I have recommended for the patient to follow more strictly to the diabetic diet as discussed in clinic to allow for greater blood glucose control. Esophageal Reflux - the patient has been counseled against excessive intake of caffeine, spicy foods, peppermint, and cinnamon - all of which can exacerbate esophageal reflux. The patient is to take medications as prescribed and call the office if the symptoms are not improving. . Diabetes Mellitus - controlled - per recent FSBS reports. I have recommended for the patient to have follow up labs prior to the next office visit. The patient has been instructed to continue with current medications as previously directed, continue with regular FSBS monitoring to assure continued control of diabetes. Pt to call for any acute concerns, complaints, or if the blood glucose readings are starting to become less controlled. Hyperlipidemia - pt has been counseled about appropriate diet, exercise, and need for low fat food choices. I have discussed the need for the patient to take medications as prescribed. If the patient has negative side effects from the medication, they are to CALL the office and not abruptly discontinue the medication without discussion with a practitioner in the office. We will check labs in 3-6 months for follow up on the patient's chronic medical problem and to assure normal liver response to medications. Hypertension - well controlled - continue with current medications, continue with no added salt diet. Pt has been encouraged to exercise daily. The pt has been advised to call the office if there are any acute concerns about change in blood pressure readings at home.
[2018-01-16] MEDS ORDERED: LIDOCAINE 1% INJ 20 ML 20 ML VIAL ONE (10:25)
[2018-01-16] MEDS ORDERED: NS IV 1000 ML 1,000 ML ONE (10:25)
[2018-01-16] MEDS ORDERED: HEParin (CATH LAB) 2,000 ML IV ONE (10:26)
[2018-01-16] MEDS ORDERED: NS IV 1000 ML 1,000 ML IV SCH ×2 (10:30→14:17)
[2018-01-16 10:36] VITALS: BP 139/56
[2018-01-16 10:47] LABS: HEMOGLOBIN 14.1 G/DL (11.5-16.0); MEAN PLATELET VOLUME 11.6 FL (7.4-10.4); RED BLOOD COUNT 4.58 10^6/uL (4.35-5.85); RED CELL DISTRIBUTION WIDTH 14.5 % (10.0-14.5); WHITE BLOOD COUNT 5.9 10^3/uL (4.3-11.0)
[2018-01-16 10:58] LABS: PROTHROMBIN TIME PATIENT 13.1 SEC (12.2-14.7)
[2018-01-16] MEDS ORDERED: OMEP20CA12 PO (11:01)
[2018-01-16] MEDS ORDERED: ASPI-983 PO (11:01)
[2018-01-16] MEDS ORDERED: CALC-6 PO (11:01)
[2018-01-16] MEDS ORDERED: MULT-35 PO (11:01)
[2018-01-16] MEDS ORDERED: OMG1KC PO (11:01)
[2018-01-16] MEDS ORDERED: VITA400C60 PO (11:01)
[2018-01-16] MEDS ORDERED: LOSA1TAB20 PO (11:01)
[2018-01-16] MEDS ORDERED: ATOR40TA70 PO (11:01)
[2018-01-16] MEDS ORDERED: METF500T5 PO (11:02)
[2018-01-16 11:06] LABS: ALANINE AMINOTRANSFERASE 10 U/L (0-55); ALBUMIN 4.2 GM/DL (3.2-4.5); ALKALINE PHOSPHATASE 56 U/L (40-136); BILIRUBIN,TOTAL 0.5 MG/DL (0.1-1.0); BUN/CREATININE RATIO 31; CALCIUM 9.7 MG/DL (8.5-10.1); CARBON DIOXIDE 30 MMOL/L (21-32); CHLORIDE 109 MMOL/L (98-107); CHOLESTEROL 144 MG/DL (< 200); CREATININE SERUM 0.71 MG/DL (0.60-1.30); GFR ESTIMATED > 60; GLUCOSE 104 MG/DL (70-105); HDL CHOLESTEROL 54 MG/DL (40-60); SODIUM 145 MMOL/L (135-145); TOTAL PROTEIN 6.8 GM/DL (6.4-8.2); TRIGLYCERIDES 77 MG/DL (<150); VLDL CHOLESTEROL 15 MG/DL (5-40)
[2018-01-16] MEDS ORDERED: MIDAZOLAM 5 MG/5 ML (VERSED) VIAL ONE (13:14)
[2018-01-16] MEDS ORDERED: fentaNYL INJECTION 100 MCG/2 ML AMP ONE (13:15)
[2018-01-16] MEDS ORDERED: diphenhydrAMINE 50 MG/ML INJ (BENADRYL) ONE (13:15)
--- NOTE | 2018-01-16 14:17 | Cardiac Procedure Note-CS/ASA ---
Pre-Procedure Note Pre-Op Procedure Note H&P Reviewed The H&P was reviewed, patient examined and no changes noted. Date H&P Reviewed: Jan 16, 2018 Time H&P Reviewed: 13:35 Conscious Sedation Pre-Proced Time Reviewed: 13:35 ASA Class: 3 Airway Mallampati Classification: (blackfeet appropriate class) I. II. III, IV Lungs Heart ASA score ASA 1: a normal healthy patient ASA 2: a patient with a mild systemic disease (mid diabetes, controlled hypertension, obesity ASA 3: a patient with a severe systemic disease that limits activity (angina , COPD, prior Myocardial infarction) ASA 4: a patient with an incapacitating disease that is a constant threat to life (CHF, renal failure) ASA 5: a moribund patient not expected to survive 24 hrs. (ruptured aneurysm) ASA 6: a declared brain patient whose organs are being harvested. For emergent operations, add the letter E after the classification Grade 2 Sedation Plan: Analgesia, Amnesia, Plan communicated to team members, Discussed options with patient/fam, Discussed risks with patient/fam Note The patient is an appropriate candidate to undergo the planned procedure, sedation, and anesthesia. The patient immediately re-assessed prior to indication. CLAIR DE LA CRUZ MD FACP [facility] Jan 16, 2018 14:17
[2018-01-16] MEDS ORDERED: ASPI-999 PO (14:20)
[2018-01-16] MEDS ORDERED: CLOP75TA69 PO (14:20)
--- NOTE | 2018-01-16 14:21 | Discharge Inst-Post CATH ---
Discharge Inst-CATH Post Cardiac Cath D/C Inst Follow Up/Plan F/u with Dr Duggan in 6 weeks CARDIAC CATH DISCHARGE INSTRUCTIONS *Hold Metformin for 48 hours post heart cath. ACTIVITY * Go Home directly and rest. * Limit activity of the leg (or wrist if it was used) for 7 days including aerobics, swimming, jogging, bicycling, etc. * Restrict stair-climbing for 7 days if possible, if not, climb up with your non -cath leg, then bring together on the same step. * Avoid lifting, pushing, pulling or excessive movement of the affected extremity for 7 days. * Customary sexual activity may be resumed after 2 days-use caution not to use a position that strains or causes pain to the affected extremity. * No driving for 24 hours. * NO SMOKING. * Avoid straining for bowel movements for 7 days. * Gentle walking on level ground is allowed. * Returning to work will depend on the type of procedure and the results. Your doctor will discuss this with you. CALL YOUR DOCTOR FOR ANY OF THE FOLLOWING: *If bleeding from the puncture site occurs- Apply gentle pressure to site with clean cloth and call your doctor or EMS. * If a knot or lump forms under the skin, increases in size, or causes pain. * If bruising appears to be worsening or moving further down your leg instead of disappearing. * Temperature above 101 F. CARE OF YOUR GROIN INCISION; * Bruising or purple discoloration of the skin near the puncture site is common. * You may shower only, no bathtub bathing for 5 days. Be careful to avoid slipping as your leg may feel stiff. * If a closure device was used on your femoral artery, please see the attached guide regarding care of the device and your leg. * REMOVE the dressing from your groin the next day after your procedure in the shower. CARE OF YOUR WRIST INCISION; * Bruising or purple discoloration of the skin near the puncture site is common. * You may shower. * DO NOT submerge wrist. * Remove dressing in 24 hours. CLAIR DUGGAN MD FACP [facility] Jan 16, 2018 14:21
--- NOTE | 2018-01-16 14:22 | Discharge Inst-Cardiology ---
Discharge Inst-Cardiac Discharge Medications New Medications: Aspirin (Aspirin) 81 Mg Tab.chew 81 MG PO DAILY, #90 TAB 3 Refills Clopidogrel Bisulfate (Plavix) 75 Mg Tablet 75 MG PO DAILY, #90 TAB 3 Refills Continued Medications: Atorvastatin Calcium (Atorvastatin Calcium) 40 Mg Tablet 40 MG PO HS, TAB Calcium Carbonate/Vitamin D3 (Calcium 600 + Vit D 200 Tablet) 1 Each Tablet 1 TAB PO DAILY, TAB Losartan/Hydrochlorothiazide (Losartan-Hctz 50-12.5 mg Tab) 1 Each Tablet 1 TAB PO DAILY, TAB Metformin HCl (Metformin HCl) 500 Mg Tablet 500 MG PO BID, TAB Multivitamin (Daily Multiple Vitamin) 1 Each Tablet 1 TAB PO DAILY, TAB Mitchell 3 Polyunsat Fatty Acids (Fish Oil 1,000 mg Capsule) 1,000 Mg Cap 1000 MG PO HS, CAP Omeprazole (Omeprazole) 20 Mg Capsule.dr 20 MG PO DAILY, CAP Vitamin E Acetate (Vitamin E) 400 Unit Capsule 400 UNIT PO DAILY, CAP Discontinued Medications: Aspirin (Aspirin EC) 81 Mg Tablet.dr 81 MG PO HS, TAB Patient Instructions Patient Instructions: NO SMOKING CLAIR DE LA CRUZ MD FACP [facility] Jan 16, 2018 14:22
[2018-01-16] MEDS ORDERED: PATIENT MAY USE OWN MEDS, ALL PO SCH (14:30)
[2018-01-16 15:00] VITALS: BP 111/58
[2018-01-16 15:30] VITALS: BP 114/60
[2018-01-16 16:00] VITALS: BP 114/56
--- NOTE | 2018-01-16 16:30 | CARDIAC CATHETERIZATION ---
DATE OF SERVICE: 01/16/2018 CARDIAC CATHETERIZATION REPORT The patient is a 67-year-old lady, who has multiple coronary artery disease risk factors and whose recent myocardial perfusion imaging study was indicative of a small amount of inferoapical ischemia. Cardiac catheterization was carried out today after having obtained an informed consent. PROCEDURE: She was brought to the cardiac catheterization laboratory in a fasting state. Right groin was prepared and draped in usual sterile fashion. A 1% lidocaine for local anesthesia. Modified Seldinger technique was used to advance a 5-British sheath in right femoral artery. A 5-British JL4 catheter for left coronary angiography and 5-British JR4 catheter for right coronary angiography, 5-British pigtail catheter was used for left heart catheterization and left ventricular angiography. Following removal of the diagnostic catheters, angiography of the right femoral artery was carried out through the sheath. Mynx was used to achieve hemostasis. She tolerated the procedure well. HEMODYNAMICS: Left ventricular end-diastolic pressure following coronary angiography was 15 to 20 mmHg. There was no significant pressure gradient pullback across the aortic valve. Ascending aortic pressure was 128/55 with a mean of 83 mmHg. CORONARY ANGIOGRAPHY: Diffuse coronary calcification is present, including the left main coronary artery, left anterior descending artery, and the right coronary artery. Right coronary artery is dominant. There is diffuse mild disease of the left anterior descending and the left circumflex. The right coronary artery has 50% mid vessel stenosis and 60% ostial stenosis of the posterior descending branch of the right coronary artery. LEFT VENTRICULAR ANGIOGRAPHY: Left ventricular angiography was carried out in the right anterior oblique projection. Global left ventricular systolic function was normal. No regional wall motion abnormality was seen. There does not appear to be any significant mitral regurgitation. Left ventricular ejection fraction approximately 60%. CONCLUSIONS: 1. Coronary artery disease, mild to moderate. The right coronary artery has 50% mid vessel and approximately 60% stenosis in the ostial portion of the posterior descending branch. 2. Normal global left ventricular systolic function with ejection fraction approximately of 60%. 3. Mild elevation of left ventricular end-diastolic pressure. 4. No significant mitral regurgitation. DISCUSSION AND RECOMMENDATIONS: Based on results of the study, it appears appropriate to continue a conservative approach. Risk factor modification has been reviewed. She has been advised to quit smoking immediately and completely and full treatment, diabetes and hyperlipidemia is also advised. Outpatient followup is advised. Job ID: [id number] DocumentID: [id number] Dictated Date: 01/16/2018 14:09:39 Mender Hand Date: 01/16/2018 16:30:14 Dictated By: CLAIR DE LA CRUZ MD, MA, FACP, FACC,
[2018-01-16 17:00] VITALS: BP 129/54
[2018-01-16 17:30] VITALS: BP 124/56
== END 2018-01-16 18:03 | disposition home or self-care (01) ==
LOC: CATH 09:53
PROVIDERS: ATTEND Internal Medicine Cardiovascular Disease
DX: I25.10 Atherosclerotic heart disease of native coronary artery without angina pectoris (principal); I10 Essential (primary) hypertension; E78.4 Other hyperlipidemia; F17.210 Nicotine dependence, cigarettes, uncomplicated; E11.9 Type 2 diabetes mellitus without complications; K21.9 Gastro-esophageal reflux disease without esophagitis; Z79.82 Long term (current) use of aspirin; Z79.84 Long term (current) use of oral hypoglycemic drugs
CPT/HCPCS: 36415; 80053; 80061; 85027; 85610; 85730; 87081; 93458

== ENCOUNTER → 2018-03-13 | Outpatient (CLI) | payer MEDICARE, OTHER ==
[~2018-03-13] MED LIST changes: +ASPI-983 PO; +ASPI-999 PO; +ATOR40TA70 PO; +CALC-6 PO; +CLOP75TA69 PO; +LOSA1TAB20 PO; +METF-397 PO; +MULT-35 PO; +OMEP20CA12 PO; +OMG1KC PO; +VITA400C60 PO
--- NOTE | 2018-03-13 19:43 | Diagnostic Imaging Report ---
INDICATION: Routine screening. Comparison is made with prior mammograms from 03/07/2017 and 04/18/2012. 2-D and 3-D bilateral screening mammography was performed with CAD. The current study was also evaluated with a Computer Aided Detection (CAD) system. FINDINGS: Scattered fibroglandular densities are identified bilaterally. The parenchymal pattern is stable. No dominant mass or malignant-appearing microcalcifications are seen. The axillae are unremarkable. IMPRESSION: No mammographic features suspicious for malignancy are identified. ACR BI-RADS Category 1: Negative. Result letter will be mailed to the patient. Note: At least 10% of breast cancer is not imaged by mammography. Dictated by: Dictated on workstation # [id number]
== END ==
LOC: RAD 09:38
PROVIDERS: ATTEND Nurse Practitioner Family
DX: Z12.31 Encounter for screening mammogram for malignant neoplasm of breast (principal)
CPT/HCPCS: 77067

== ENCOUNTER 2018-03-24 13:14 | Emergency (ER) | payer MEDICARE, OTHER ==
[~2018-03-24] VITALS: Ht 152.4 cm; Wt 68.9 kg
--- NOTE | 2018-03-24 14:05 | ED Neurological Problem ---
General Chief Complaint: Dizziness/Syncope Stated Complaint: DIZZINESS/NAUSEA Source: patient, family Exam Limitations: no limitations History of Present Illness Date Seen by Provider: Mar 24, 2018 Time Seen by Provider: 14:01 Initial Comments This 68-year-old white female presents with a complaint of dizziness that began this morning. The patient's dizziness was made worse by moving her head and eyes. Patient's dizziness was worse after she got out of bed. Patient had nausea but no vomiting. She has no associated headache, stiff neck , photophobia, or fever. Patient denies associated paresthesias or weakness. She denies lateralizing or localizing neurologic findings. The patient denies chest pain, shortness of breath, or palpitations. Past medical history includes hypertension and diabetes. Patient states her blood sugar this morning was approximately 120. The patient's blood pressure upon presentation was 170. Allergies and Home Medications Allergies Coded Allergies: Anita Known Allergies (Unverified Allergy, Mild, 01/22/09) Home Medications Aspirin 81 Mg Tab.chew, 81 MG PO DAILY Prescribed by: CLAIR DE LA CRUZ on 01/16/18 1420 Atorvastatin Calcium 40 Mg Tablet, 40 MG PO HS, (Reported) Calcium Carbonate/Vitamin D3 1 Each Tablet, 1 TAB PO DAILY, (Reported) Clopidogrel Bisulfate 75 Mg Tablet, 75 MG PO DAILY Prescribed by: CLAIR DE LA CRUZ on 01/16/18 1420 Losartan/Hydrochlorothiazide 1 Each Tablet, 1 TAB PO DAILY, (Reported) Metformin HCl 500 Mg Tablet, 500 MG PO BID, (Reported) Multivitamin 1 Each Tablet, 1 TAB PO DAILY, (Reported) [place] 3 Polyunsat Fatty Acids 1,000 Mg Cap, 1,000 MG PO HS, (Reported) Omeprazole 20 Mg Capsule.dr, 20 MG PO DAILY, (Reported) Vitamin E Acetate 400 Unit Capsule, 400 UNIT PO DAILY, (Reported) Patient Home Medication List Home Medication List Reviewed: Yes Review of Systems Review of Systems Constitutional: see HPI; No chills; dizziness; No fever Eyes: Denies Blurred Vision, Denies Photophobia Ears, Nose, Mouth, Throat: denies ear pain, denies ear discharge, denies nose discharge, denies epistaxis Respiratory: No cough Cardiovascular: No chest pain, No palpitations Gastrointestinal: No abdominal pain, No diarrhea; nausea; No vomiting Genitourinary: No dysuria, No frequency : No Musculoskeletal: No back pain, No gout, No joint pain Skin: No rash Psychiatric/Neurological: No Symptoms Reported Endocrine: No Symptoms Reported Hematologic/Lymphatic: No Symptoms Reported Past Gtwgzqy-Wdzrus-Gqukrd Hx Past Med/Social Hx: Reviewed Nursing Past Med/Soc Hx Patient Social History Alcohol Use: Denies Use Recreational Drug Use: No Smoking Status: Never a Smoker Type Used: Cigars Recent Foreign Travel: No Contact w/Someone Who Travel: No Immunizations Up To Date Date of Pneumonia Vaccine: Jan 16, 2014 Past Medical History Surgeries: Yes Respiratory: No Cardiac: No Gastrointestinal: No Physical Exam Vital Signs Vital Signs - First Documented 03/24/18 13:22 Temp 97.2 Pulse 60 Resp 18 B/P (MAP) 188/74 (112) Pulse Ox 99 O2 Delivery Room Air Capillary Refill : Height, Weight, BMI Height: 4'10.00" Weight: 145lbs. 0.0oz. [id number]; 30.3 BMI Method: General Appearance: WD/WN, mild distress HEENT: normal ENT inspection Neck: non-tender, supple, normal inspection Respiratory: lungs clear, normal breath sounds Cardiovascular: regular rate, rhythm, no edema Gastrointestinal: normal bowel sounds, non tender, soft Back: normal inspection Extremities: normal range of motion, non-tender, normal inspection Neurologic/Psychiatric: no motor/sensory deficits, alert, normal mood/affect, oriented x 3 Crainal Nerves: normal hearing, normal speech, other (patient demonstrates a lateral gaze nystagmus) Coordination/Gait: normal gait Motor/Sensory: no motor deficit, no sensory deficit Skin: normal color, warm/dry Progress/Results/Core Measures Results/Orders Lab Results Laboratory Tests Test 03/24/18 13:33 Range/Units White Blood Count 5.6 4.3-11.0 10^3/uL Red Blood Count 4.42 4.35-5.85 10^6/uL Hemoglobin 13.8 11.5-16.0 G/DL Hematocrit 41 35-52 % Mean Corpuscular Volume 92 80-99 FL Mean Corpuscular Hemoglobin 31 25-34 PG Mean Corpuscular Hemoglobin Concent 34 32-36 G/DL Red Cell Distribution Width 14.1 10.0-14.5 % Platelet Count 190 130-400 10^3/uL Mean Platelet Volume 11.2 H 7.4-10.4 FL Neutrophils (%) (Auto) 67 42-75 % Lymphocytes (%) (Auto) 25 12-44 % Monocytes (%) (Auto) 7 0-12 % Eosinophils (%) (Auto) 1 0-10 % Basophils (%) (Auto) 1 0-10 % Neutrophils # (Auto) 3.7 1.8-7.8 X 10^3 Lymphocytes # (Auto) 1.4 1.0-4.0 X 10^3 Monocytes # (Auto) 0.4 0.0-1.0 X 10^3 Eosinophils # (Auto) 0.1 0.0-0.3 10^3/uL Basophils # (Auto) 0.0 0.0-0.1 10^3/uL Sodium Level 141 135-145 MMOL/L Potassium Level 3.8 3.6-5.0 MMOL/L Chloride Level 98 98-107 MMOL/L Carbon Dioxide Level 31 21-32 MMOL/L Anion Gap 12 5-14 MMOL/L Blood Urea Nitrogen 15 7-18 MG/DL Creatinine 0.72 0.60-1.30 MG/DL Estimat Glomerular Filtration Rate > 60 BUN/Creatinine Ratio 21 Glucose Level 134 H 70-105 MG/DL Calcium Level 10.3 H 8.5-10.1 MG/DL Corrected Calcium 8.5-10.1 MG/DL Total Bilirubin 0.6 0.1-1.0 MG/DL Aspartate Amino Transf (AST/SGOT) 14 5-34 U/L Alanine Aminotransferase (ALT/SGPT) 14 0-55 U/L Alkaline Phosphatase 67 40-136 U/L Total Protein 7.3 6.4-8.2 GM/DL Albumin 4.6 H 3.2-4.5 GM/DL My Orders Orders - RAO LEVINE MD Diazepam Injection (Valium Injection) (03/24/18 14:15) Cbc With Automated Diff (03/24/18 14:05) Comprehensive Metabolic Panel (03/24/18 14:05) Hemoglobin A1c (03/24/18 14:05) Ct Head Wo (03/24/18 14:05) Medications Given in ED Current Medications Medications Dose Ordered Sig/Maritza Route Start Time Stop Time Status Last Admin Dose Admin Diazepam 5 mg ONCE ONCE IV 03/24/18 14:15 03/24/18 14:16 DC 03/24/18 14:14 5 MG Vital Signs/I&O 03/24/18 03/24/18 13:22 14:43 Temp 97.2 Pulse 60 56 Resp 18 18 B/P (MAP) 188/74 (112) 150/58 (88) Pulse Ox 99 97 O2 Delivery Room Air Room Air Progress Progress Note : Time: 15:27 Progress Note The patient's dizziness was dramatically improved with 5 mg of Valium IV. The patient's CT of her head was unremarkable. I discussed findings with the patient and offered the opinion that the presentation was consistent with BPPV. I offered a prescription for a few more Valium at home for symptomatic relief until she follow-up with her primary care physician on Monday. We discussed Lila maneuvers of the symptoms persisted. Departure Impression Primary Impression: Vertigo Disposition: 01 HOME, SELF-CARE Condition: Improved Departure-Patient Inst. Decision time for Depature: 15:34 Referrals: FER HANSON MD (PCP/Family) Primary Care Physician Patient Instructions: Vertigo (a Type of Dizziness) (DC) Add. Discharge Instructions: Valium as needed for dizziness. Follow up closely with Dr. Hanson on Monday. Return of any problems or questions. All discharge instructions reviewed with patient and/or family. Voiced understanding. RAO LEVINE MD Mar 24, 2018 14:05
[2018-03-24 14:13] LABS: BASOPHILS % (AUTO) 1 % (0-10); EOSINOPHILS # (AUTO) 0.1 10^3/uL (0.0-0.3); EOSINOPHILS % (AUTO) 1 % (0-10); HEMATOCRIT 41 % (35-52); HEMOGLOBIN 13.8 G/DL (11.5-16.0); LYMPHOCYTES # (AUTO) 1.4 X 10^3 (1.0-4.0); LYMPHOCYTES % (AUTO) 25 % (12-44); MEAN CORPUSCULAR HEMOGLOBIN 31 PG (25-34); MEAN CORPUSCULAR HGB CONC 34 G/DL (32-36); MEAN CORPUSCULAR VOLUME 92 FL (80-99); MEAN PLATELET VOLUME 11.2 FL (7.4-10.4); MONOCYTES # (AUTO) 0.4 X 10^3 (0.0-1.0); MONOCYTES % (AUTO) 7 % (0-12); NEUTROPHILS # (AUTO) 3.7 X 10^3 (1.8-7.8); NEUTROPHILS % (AUTO) 67 % (42-75); PLATELET COUNT 190 10^3/uL (130-400); RED BLOOD COUNT 4.42 10^6/uL (4.35-5.85); RED CELL DISTRIBUTION WIDTH 14.1 % (10.0-14.5); WHITE BLOOD COUNT 5.6 10^3/uL (4.3-11.0)
[2018-03-24] MEDS ORDERED: DIAZEPAM INJ 10 MG/2 ML (VALIUM) SYR IV ONE (14:15)
[2018-03-24 14:27] LABS: ALANINE AMINOTRANSFERASE 14 U/L (0-55); ALBUMIN 4.6 GM/DL (3.2-4.5); ALKALINE PHOSPHATASE 67 U/L (40-136); BILIRUBIN,TOTAL 0.6 MG/DL (0.1-1.0); BUN/CREATININE RATIO 21; CALCIUM 10.3 MG/DL (8.5-10.1); CARBON DIOXIDE 31 MMOL/L (21-32); CHLORIDE 98 MMOL/L (98-107); CREATININE SERUM 0.72 MG/DL (0.60-1.30); GFR ESTIMATED > 60; GLUCOSE 134 MG/DL (70-105); POTASSIUM 3.8 MMOL/L (3.6-5.0); SODIUM 141 MMOL/L (135-145); TOTAL PROTEIN 7.3 GM/DL (6.4-8.2)
--- NOTE | 2018-03-24 14:36 | Diagnostic Imaging Report ---
PROCEDURE: CT head without contrast. TECHNIQUE: Multiple contiguous axial images were obtained through the brain without the use of intravenous contrast. INDICATION: Dizziness and nausea. COMPARISON: None. FINDINGS: The ventricles and cortical sulci appear age-appropriate. There is no midline shift or mass effect. No acute intracranial hemorrhage is seen. There is no CT evidence of acute territorial ischemia. The calvarium is intact. The paranasal sinuses are not well visualized. Mastoid air cells appear clear. IMPRESSION: 1. No acute intracranial hemorrhage or CT evidence of acute territorial ischemia. Dictated by: Dictated on workstation # [id number]
[2018-03-24 14:43] VITALS: BP 150/58
[2018-03-24 15:48] VITALS: BP 150/70
== END 2018-03-24 16:00 | disposition home or self-care (01) ==
LOC: EDUNIT# 13:14 → ER 13:16
DX: R42 Dizziness and giddiness (principal); I10 Essential (primary) hypertension; E11.9 Type 2 diabetes mellitus without complications; Z79.82 Long term (current) use of aspirin; Z79.84 Long term (current) use of oral hypoglycemic drugs; Z79.02 Long term (current) use of antithrombotics/antiplatelets
CPT/HCPCS: 36415; 70450; 80053; 83036; 85025; 93005; 96374

== ENCOUNTER → 2018-04-04 | Outpatient (CLI) | payer MEDICARE, OTHER ==
[~2018-04-04] VITALS: Ht 177.8 cm; Wt 68.9 kg
[~2018-04-04] MED LIST changes: +DENOSUMAB 60 MG/1 ML (PROLIA) SQ ONE
[2018-04-04 13:18] VITALS: BP 142/68
== END ==
LOC: SDC 12:47
PROVIDERS: ATTEND Family Medicine
DX: M81.0 Age-related osteoporosis without current pathological fracture (principal)
CPT/HCPCS: 96372

== ENCOUNTER → 2018-10-10 | Outpatient (CLI) | payer MEDICARE, OTHER ==
[~2018-10-10] VITALS: Ht 177.8 cm; Wt 68.9 kg
[2018-10-10 13:55] VITALS: BP 155/74
== END ==
LOC: SDC 12:57
PROVIDERS: ATTEND Family Medicine
DX: M81.0 Age-related osteoporosis without current pathological fracture (principal)
CPT/HCPCS: 96372

== ENCOUNTER → 2019-03-14 | Outpatient (CLI) | payer MEDICARE, OTHER ==
[~2019-03-14] MED LIST changes: -DENOSUMAB 60 MG/1 ML (PROLIA) SQ ONE; -OMEP20CA12 PO; +OMEP20CA13 PO
--- NOTE | 2019-03-14 19:14 | Diagnostic Imaging Report ---
INDICATION: Routine screening. COMPARISON: Comparison is made with prior mammograms from 03/13/2018 and 03/07/2017. TECHNIQUE: 2-D and 3-D bilateral screening mammography was performed. The current study was also evaluated with a Computer Aided Detection (CAD) system. 3-D tomosynthesis was also performed and reviewed. FINDINGS: Scattered fibroglandular densities are identified bilaterally. The parenchymal pattern is stable. No mass or malignant-appearing microcalcifications are seen. Axillae are unremarkable. IMPRESSION: No mammographic features suspicious for malignancy are identified. ACR BI-RADS Category 1: Negative. Result letter will be mailed to the patient. Note: At least 10% of breast cancer is not imaged by mammography. Dictated by: Dictated on workstation # [id number]
== END ==
LOC: RAD 10:45
PROVIDERS: ATTEND Nurse Practitioner Family
DX: Z12.31 Encounter for screening mammogram for malignant neoplasm of breast (principal)
CPT/HCPCS: 77067

== ENCOUNTER 2019-04-10 12:53 | Outpatient (CLI) | payer MEDICARE, OTHER ==
[~2019-04-10] VITALS: Ht 147 cm; Wt 72.0 kg
[2019-04-10 13:12] VITALS: BP 143/75
[2019-04-10] MEDS ORDERED: DENOSUMAB 60 MG/1 ML (PROLIA) SQ ONE (13:15)
== END 2019-04-10 13:12 | disposition home or self-care (01) ==
LOC: SDC 12:53
PROVIDERS: ATTEND Family Medicine
DX: M81.0 Age-related osteoporosis without current pathological fracture (principal)
CPT/HCPCS: 96372

== ENCOUNTER → 2019-07-23 | Outpatient (CLI) | payer MEDICARE, OTHER ==
[~2019-07-23] MED LIST changes: +OMEP-280 PO; -OMEP20CA13 PO
[2019-07-23 08:22] LABS: HEMATOCRIT 41 % (35-52); HEMOGLOBIN 13.3 G/DL (11.5-16.0); MEAN CORPUSCULAR HEMOGLOBIN 29 PG (25-34); MEAN CORPUSCULAR HGB CONC 32 G/DL (32-36); MEAN CORPUSCULAR VOLUME 90 FL (80-99); PLATELET COUNT 236 10^3/uL (130-400); RED CELL DISTRIBUTION WIDTH 14.2 % (10.0-14.5); WHITE BLOOD COUNT 4.6 10^3/uL (4.3-11.0)
[2019-07-23 08:23] LABS: BASOPHILS % (AUTO) 1 % (0-10); EOSINOPHILS # (AUTO) 0.1 10^3/uL (0.0-0.3); EOSINOPHILS % (AUTO) 2 % (0-10); LYMPHOCYTES # (AUTO) 1.8 X 10^3 (1.0-4.0); LYMPHOCYTES % (AUTO) 39 % (12-44); MONOCYTES # (AUTO) 0.4 X 10^3 (0.0-1.0); MONOCYTES % (AUTO) 8 % (0-12); NEUTROPHILS # (AUTO) 2.3 X 10^3 (1.8-7.8); NEUTROPHILS % (AUTO) 50 % (42-75)
[2019-07-23 08:52] LABS: POTASSIUM 4.2 MMOL/L (3.6-5.0)
[2019-07-23 08:53] LABS: ALBUMIN 4.4 GM/DL (3.2-4.5); BILIRUBIN,TOTAL 0.3 MG/DL (0.1-1.0); CALCIUM 9.7 MG/DL (8.5-10.1); TOTAL PROTEIN 7.3 GM/DL (6.4-8.2)
== END ==
LOC: LAB 07:57
PROVIDERS: ATTEND Nurse Practitioner Family
DX: E78.5 Hyperlipidemia, unspecified (principal); E11.9 Type 2 diabetes mellitus without complications
CPT/HCPCS: 80053; 80061

== ENCOUNTER → 2019-07-23 | Outpatient (CLI) | payer MEDICARE, OTHER ==
[2019-07-23 08:15] LABS: BASOPHILS % (AUTO) 1 % (0-10); EOSINOPHILS # (AUTO) 0.1 10^3/uL (0.0-0.3); EOSINOPHILS % (AUTO) 2 % (0-10); HEMATOCRIT 41 % (35-52); HEMOGLOBIN 13.3 G/DL (11.5-16.0); LYMPHOCYTES # (AUTO) 1.8 X 10^3 (1.0-4.0); LYMPHOCYTES % (AUTO) 39 % (12-44); MEAN CORPUSCULAR HEMOGLOBIN 29 PG (25-34); MEAN CORPUSCULAR HGB CONC 32 G/DL (32-36); MEAN CORPUSCULAR VOLUME 90 FL (80-99); MONOCYTES # (AUTO) 0.4 X 10^3 (0.0-1.0); MONOCYTES % (AUTO) 8 % (0-12); NEUTROPHILS # (AUTO) 2.3 X 10^3 (1.8-7.8); NEUTROPHILS % (AUTO) 50 % (42-75); PLATELET COUNT 236 10^3/uL (130-400); RED CELL DISTRIBUTION WIDTH 14.2 % (10.0-14.5); WHITE BLOOD COUNT 4.6 10^3/uL (4.3-11.0)
[2019-07-23 08:42] LABS: ALBUMIN 4.4 GM/DL (3.2-4.5); BILIRUBIN,TOTAL 0.3 MG/DL (0.1-1.0); CALCIUM 9.7 MG/DL (8.5-10.1); POTASSIUM 4.2 MMOL/L (3.6-5.0); TOTAL PROTEIN 7.3 GM/DL (6.4-8.2)
[2019-07-23 08:48] LABS: ERYTHROCYTE SEDIMENTATION RATE 19 MM/HR (0-30)
== END ==
LOC: LAB 07:59
PROVIDERS: ATTEND Internal Medicine Cardiovascular Disease
DX: I25.10 Atherosclerotic heart disease of native coronary artery without angina pectoris (principal); I77.89 Other specified disorders of arteries and arterioles; I10 Essential (primary) hypertension; E11.9 Type 2 diabetes mellitus without complications; Z72.0 Tobacco use
CPT/HCPCS: 36415; 80053; 80061; 83036; 84443; 85025; 85652

== ENCOUNTER 2019-10-14 12:56 | Outpatient (CLI) | payer MEDICARE, OTHER ==
[~2019-10-14 12:56] MED LIST changes: -OMEP-280 PO; +OMEP20CA18 PO
[2019-10-14 13:00] VITALS: BP 122/68
[2019-10-14] MEDS ORDERED: DENOSUMAB 60 MG/1 ML (PROLIA) SQ ONE (13:15)
== END 2019-10-14 13:23 | disposition home or self-care (01) ==
LOC: SDC 12:56
PROVIDERS: ATTEND Family Medicine
DX: M81.0 Age-related osteoporosis without current pathological fracture (principal)
CPT/HCPCS: 96372

== ENCOUNTER → 2020-03-17 | Outpatient (CLI) | payer MEDICARE, OTHER ==
[~2020-03-17] MED LIST changes: +ASPI-1238 PO; -ASPI-983 PO
--- NOTE | 2020-03-17 15:34 | Diagnostic Imaging Report ---
INDICATION: Routine screening. COMPARISON: 03/14/2019 and 03/13/2018. TECHNIQUE: 2D and 3D bilateral screening mammography was performed with CAD. FINDINGS: Both breasts are heterogeneously dense, limiting the sensitivity of mammography. The parenchymal pattern is stable. No mass or malignant appearing microcalcifications are seen. There are benign calcifications. The axillae are unremarkable. IMPRESSION: No mammographic features suspicious for malignancy are identified. ACR BI-RADS Category 2: Benign findings. Result letter will be mailed to the patient. Note: At least 10% of breast cancer is not imaged by mammography. Dictated by: Dictated on workstation # [id number]
--- NOTE | 2020-03-17 15:41 | Diagnostic Imaging Report ---
INDICATION: Postmenopausal. COMPARISON: 03/01/2018. FINDINGS: The bone mineral density of the hips and spine was measured. The T-score for the spine is -2.9. On the prior exam, the T-score was -3.3. This value still falls within the range of osteoporosis. The total T-score for the hips is -2.4. On the prior exam, the total T-score for the left hip was -2.8 and for the right hip -2.7. The T-score for the left femoral neck is -2.6 and for the right femoral neck -2.4. The respective T-scores on the prior exam were -3.1 and -2.9. AP Spine L1-L4: [BMD (g/cm2): 0.858] [T-Score: -2.9] [Z-Score: -1.4] [BMD Previous: 0.801] [BMD % Change: 7.1] LT Hip Neck: [BMD (g/cm2): 0.672] [T-Score: -2.6] [Z-Score: -1.0] LT Hip Total: [BMD (g/cm2):0.701] [T-Score:-2.4] [Z-Score: -1.1] [BMD Previous: 0.658] [BMD % Change: 6.5] RT Hip Neck: [BMD (g/cm2):0.698] [T-Score:-2.4] [Z-Score:-0.8] RT Hip Total: [BMD (g/cm2):0.710] [T-score:-2.4] [Z-Score:-1.0] [BMD Previous:0.665] [BMD % Change:6.8] *Indicates significant change from prior examination based on 95% confidence level. World Health Organization criteria for BMD interpretation classify patients as Normal (T-score at or above -1.0), Osteopenic (T-score between -1.0 and -2.5) or Osteoporotic (T-score at or below -2.5). LIMITATIONS AND MODIFICATION: None. FRACTURE RISK (FRAX SCORE): The ten year probability of (%): Major Osteoporotic Fracture: [16.0] Hip Fracture: [4.6] IMPRESSION: 1 There has been increase in bone mineral density of the spine, the hips and the femoral necks. However, the T-scores for the spine and left femoral neck still indicate osteoporosis. 2. The total T-scores for the hips and for the right femoral neck would be consistent with severe osteopenia. 3. See below National Osteoporosis Foundation guidelines on when to potentially initiate pharmacologic therapy. Based on the National Osteoporosis Foundation Guidelines, pharmacologic treatment should be initiated in any of the following, unless clinical conditions suggest otherwise: * Any patient with prior fragility fracture of the hip or vertebrae. A spine fracture indicates 5X risk for subsequent spine fracture and 2X risk for subsequent hip fracture. * Osteoporosis (T-score <-2.5). * Postmenopausal women and men age 50 and older with low bone mass/osteopenia (T-score between -1.0 and -2.5) by DXA and 10-year major osteoporotic fracture greater than 20% or a 10-year probability of hip fracture greater than 3%. These fracture risks are supplied above in the FRAX score, if applicable. * Clinician judgement and/or patient preferences may indicate treatment for people with 10-year fracture probabilities above or below these levels. Dictated by: Dictated on workstation # [id number]
== END ==
LOC: RAD 13:15
PROVIDERS: ATTEND Family Medicine
DX: Z12.31 Encounter for screening mammogram for malignant neoplasm of breast (principal); M81.0 Age-related osteoporosis without current pathological fracture; N95.9 Unspecified menopausal and perimenopausal disorder
CPT/HCPCS: 77063; 77067; 77080

== ENCOUNTER → 2020-04-13 | Outpatient (CLI) | payer MEDICARE, OTHER ==
[~2020-04-13] MED LIST changes: +DENOSUMAB 60 MG/1 ML (PROLIA) SQ SCH
[2020-04-13 11:20] VITALS: BP 144/65
== END ==
LOC: SDC 10:58
PROVIDERS: ATTEND Nurse Practitioner Family
DX: M81.0 Age-related osteoporosis without current pathological fracture (principal)
CPT/HCPCS: 96372

== ENCOUNTER → 2020-10-19 | Outpatient (CLI) | payer MEDICARE, OTHER ==
[~2020-10-19] MED LIST changes: -CALC-6 PO; +CALC1TAB84 PO
[2020-10-19 11:35] VITALS: BP 147/55
== END ==
LOC: SDC 10:55
PROVIDERS: ATTEND Nurse Practitioner Family
DX: M81.0 Age-related osteoporosis without current pathological fracture (principal)
CPT/HCPCS: 96372

== ENCOUNTER → 2021-04-13 | Outpatient (CLI) | payer MEDICARE, OTHER ==
[~2021-04-13] MED LIST changes: -DENOSUMAB 60 MG/1 ML (PROLIA) SQ SCH
--- NOTE | 2021-04-13 17:41 | Diagnostic Imaging Report ---
INDICATION: Routine screening. COMPARISON is made with prior mammograms from 03/17/2020 and 03/14/2019. 2-D and 3-D bilateral screening mammography was performed with CAD. Scattered fibroglandular densities are identified bilaterally. The parenchymal pattern is stable. No mass or malignant-appearing microcalcifications are seen. Axillae are unremarkable. IMPRESSION: BI-RADS Category 1 No mammographic features suspicious for malignancy are identified. ACR BI-RADS Category 1: Negative. Result letter will be mailed to the patient. Note: At least 10% of breast cancer is not imaged by mammography. Dictated by: Dictated on workstation # [id number]
== END ==
LOC: RAD 13:30
PROVIDERS: ATTEND Nurse Practitioner Family
DX: Z12.31 Encounter for screening mammogram for malignant neoplasm of breast (principal)
CPT/HCPCS: 77063; 77067

== ENCOUNTER → 2021-04-26 | Outpatient (CLI) | payer MEDICARE, OTHER ==
[~2021-04-26] MED LIST changes: +DENOSUMAB 60 MG/1 ML (PROLIA) SQ SCH
[2021-04-26 11:05] VITALS: BP 145/65
== END ==
LOC: SDC 10:52
PROVIDERS: ATTEND Nurse Practitioner Family
DX: M81.0 Age-related osteoporosis without current pathological fracture (principal)
CPT/HCPCS: 96372

== ENCOUNTER → 2021-10-27 | Outpatient (CLI) | payer MEDICARE, OTHER ==
[2021-10-27 11:00] VITALS: BP 151/72
== END ==
LOC: SDC 10:40
PROVIDERS: ATTEND Nurse Practitioner Family
DX: M81.0 Age-related osteoporosis without current pathological fracture (principal)
CPT/HCPCS: 96372

== ENCOUNTER → 2022-04-14 | Outpatient (CLI) | payer MEDICARE, OTHER ==
[~2022-04-14] MED LIST changes: -DENOSUMAB 60 MG/1 ML (PROLIA) SQ SCH
--- NOTE | 2022-04-14 15:06 | Diagnostic Imaging Report ---
INDICATION: Routine screening. COMPARISON is made with prior mammograms 04/13/2021 and 03/17/2020. 2-D and 3-D bilateral screening mammography was performed with CAD. Scattered fibroglandular densities are identified bilaterally. There is a density in the outer left breast at mid depth which appears more prominent than prior exams. Additional views are recommended. No definite correlate on the MLO view is seen. Right breast is unremarkable. No malignant-appearing microcalcifications are seen. Axillae are unremarkable. IMPRESSION: BI-RADS 0 Left breast density. Additional views are recommended for further evaluation. ACR BI-RADS Category 0: Incomplete. (Needs additional imaging evaluation). Result letter will be mailed to the patient. Note: At least 10% of breast cancer is not imaged by mammography. Dictated by: Dictated on workstation # [id number]
== END ==
LOC: RAD 09:39
PROVIDERS: ATTEND Nurse Practitioner Family
DX: Z12.31 Encounter for screening mammogram for malignant neoplasm of breast (principal)
CPT/HCPCS: 77063; 77067

== ENCOUNTER → 2022-04-14 | Outpatient (CLI) | payer MEDICARE, OTHER | LOC: CARD 09:39 | PROVIDERS: ATTEND Nurse Practitioner Family | DX: I35.8 Other nonrheumatic aortic valve disorders (principal) | CPT/HCPCS: 93306 ==

== ENCOUNTER → 2022-05-03 | Outpatient (CLI) | payer MEDICARE, OTHER ==
[~2022-05-03] MED LIST changes: +DENOSUMAB 60 MG/1 ML (PROLIA) SQ ONE
[2022-05-03 13:00] VITALS: BP 181/73
== END ==
LOC: SDC 12:53
PROVIDERS: ATTEND Family Medicine
DX: M81.0 Age-related osteoporosis without current pathological fracture (principal)
CPT/HCPCS: 96372

== ENCOUNTER → 2022-05-04 | Outpatient (CLI) | payer MEDICARE, OTHER ==
[~2022-05-04] MED LIST changes: -DENOSUMAB 60 MG/1 ML (PROLIA) SQ ONE
--- NOTE | 2022-05-04 13:43 | Diagnostic Imaging Report ---
INDICATION: Left breast density. COMPARISON: Correlation is made with the diagnostic mammogram from earlier this same day and a screening mammogram from 04/14/2022. FINDINGS: Sonographic interrogation of the upper outer left breast was performed. There is a tiny cyst at the 2 o'clock location 4 cm from the nipple measuring 3 mm in diameter. It is uncertain if this represents the mammographic density. No other sonographic abnormality is seen. No solid mass is detected. IMPRESSION: Tiny cyst in the upper outer left breast. No concerning sonographic finding is identified. Patient may return to routine annual screening mammography. ACR BI-RADS Category 2: Benign findings. Result letter will be mailed to the patient. Note: At least 10% of breast cancer is not imaged by mammography. Dictated by: Dictated on workstation # [id number]
--- NOTE | 2022-05-04 15:57 | Diagnostic Imaging Report ---
Indication: Left breast density. Patient presents for additional views. Correlation is made with screening mammogram from 04/14/2022. Unilateral left 2-D and 3-D diagnostic mammography was performed with CAD. This included spot compression CC as well as conventional 90 degree lateral views. CAD is utilized. The current study was also evaluated with a Computer Aided Detection (CAD) system. Additional views show a slightly persistent density in the outer left breast on the spot compression CC view. No definite correlate on the 90 degree lateral view is seen but likely superior. There is no suspicious microcalcifications. IMPRESSION: BI-RADS 0 There is some residual density in the outer left breast after additional views. Further evaluation with ultrasound is recommended and will be performed today. ACR BI-RADS Category 0: Incomplete. (Needs additional imaging evaluation). Result letter will be mailed to the patient. Note: At least 10% of breast cancer is not imaged by mammography. Dictated by: Dictated on workstation # [id number]
== END ==
LOC: RAD 12:30
PROVIDERS: ATTEND Nurse Practitioner Family
DX: N60.02 Solitary cyst of left breast (principal)
CPT/HCPCS: 76642; 77065; G0279

== ENCOUNTER → 2023-02-07 | Outpatient (CLI) | payer MEDICARE, OTHER ==
[~2023-02-07] MED LIST changes: +CATHETER FLUSH 10 ML SYR IVP PRN; +CLOP-31 PO; -CLOP75TA69 PO; +REGADENOSON 0.4 MG/5 ML SYR (LEXISCAN) IV ONE
[2023-02-07 13:26] VITALS: BP 147/51
--- NOTE | 2023-02-07 22:18 | STRESS TEST ---
DATE OF SERVICE: 02/07/2023 RESTING AND POST REGADENOSON TECHNETIUM-99M TETROFOSMIN SPECT CT IMAGING ORDERING PHYSICIAN: Dr. Duggan. PRIMARY PHYSICIAN: Dr. Hanson. CLINICAL DIAGNOSIS: Coronary artery disease. Baseline images were carried out after injection of 9.99 mCi technetium-99m tetrofosmin. This was followed by 0.4 mg regadenoson and 32.2 mCi of technetium-99m tetrofosmin for stress imaging. The electrocardiogram showed sinus rhythm at baseline. It did not change significantly with regadenoson infusion. The patient tolerated the procedure well. Review of images at rest and following stress does not indicate any distinct perfusion defects consistent with significant myocardial ischemia or infarction. Gated images show normal global left ventricular systolic function with normal regional wall motion. Left ventricular ejection fraction is calculated to be 74%. CONCLUSIONS: 1. No evidence of significant myocardial ischemia or infarction study. 2. Normal regional wall motion. 3. Normal global left systolic function with a calculated ejection fraction 74%. Job ID: [id number] DocumentID: [id number] Dictated Date: 02/07/2023 19:24:28 Solutions Sales Consultant Date: 02/07/2023 22:16:00 Dictated By: CLAIR DUGGAN MD; MARYBETH; FACP; FACC;
== END ==
LOC: CARD 11:32
PROVIDERS: ATTEND Internal Medicine Cardiovascular Disease
DX: I25.10 Atherosclerotic heart disease of native coronary artery without angina pectoris (principal)
CPT/HCPCS: 78452; 93017; A9502

== ENCOUNTER → 2023-03-08 | Outpatient (CLI) | payer MEDICARE, OTHER ==
[~2023-03-08] MED LIST changes: +CATHETER FLUSH 10 ML SYR IV PRN; -CATHETER FLUSH 10 ML SYR IVP PRN; +IOHEXOL 350 MG/ML 100 ML (OMNIPAQUE 350) VIAL IV ONE; +NS 100 ML (IVPB) BAG IV ONE; -REGADENOSON 0.4 MG/5 ML SYR (LEXISCAN) IV ONE
[2023-03-08 13:03] LABS: CREATININE SERUM 0.8 MG/DL (0.60-1.30)
--- NOTE | 2023-03-08 14:26 | Diagnostic Imaging Report ---
EXAMINATION: CT abdomen and pelvis with intravenous contrast. TECHNIQUE: Multiple contiguous axial images were obtained through the abdomen and pelvis after the uneventful administration of intravenous contrast. All CT scans use one or more of the following dose optimizing techniques: Automated exposure control, MA and/or KvP adjustment based on patient size and exam type or iterative reconstruction. HISTORY: Abdominal pain and diarrhea. COMPARISON: None available. FINDINGS: Lung bases: Bibasilar dependent atelectasis. Solid organs: The liver is normal without focal lesion. The gallbladder is normal. There is no biliary ductal dilation. Pancreas is normal. Spleen is normal. Adrenal glands are normal. The kidneys are normal without hydronephrosis. Bowel: The stomach and small bowel are normal without obstruction. There is scattered colonic diverticulosis. A moderate amount of stool is seen throughout the colon. There are no secondary signs of acute appendicitis. Peritoneum: There is no intraperitoneal free fluid or free air. No suspicious lymphadenopathy. Vasculature: Calcification of the aorta without aneurysm. Musculoskeletal: Degenerative changes of the spine without suspicious osseous lesion or compression fracture. Pelvis: The uterus is surgically absent. No adnexal mass. The urinary bladder is normal. IMPRESSION: 1. No acute abnormality in the abdomen or pelvis. Dictated by: Dictated on workstation # [id number]
== END ==
LOC: RAD 12:30
PROVIDERS: ATTEND Physician Assistant
DX: K52.9 Noninfective gastroenteritis and colitis, unspecified (principal); R53.81 Other malaise
CPT/HCPCS: 36415; 74177; 82565; 84520

== ENCOUNTER 2023-04-12 12:52 | Outpatient (CLI) | payer MEDICARE, OTHER ==
[~2023-04-12 12:52] MED LIST changes: -CATHETER FLUSH 10 ML SYR IV PRN; -IOHEXOL 350 MG/ML 100 ML (OMNIPAQUE 350) VIAL IV ONE; -NS 100 ML (IVPB) BAG IV ONE
[2023-04-12] MEDS ORDERED: DENOSUMAB 60 MG/1 ML (PROLIA) SQ ONE (13:15)
[2023-04-12 13:18] VITALS: BP 139/71
== END 2023-04-12 13:19 | disposition home or self-care (01) ==
LOC: SDC 12:52
PROVIDERS: ATTEND Family Medicine
DX: M81.0 Age-related osteoporosis without current pathological fracture (principal)
CPT/HCPCS: 96372

== ENCOUNTER → 2023-04-18 | Outpatient (CLI) | payer MEDICARE, OTHER ==
--- NOTE | 2023-04-18 15:16 | Diagnostic Imaging Report ---
INDICATION: Routine screening. COMPARISON: 04/14/2022 and 04/13/2021. TECHNIQUE: 2D and 3D bilateral screening mammography was performed with CAD. FINDINGS: Scattered fibroglandular densities are identified bilaterally. The parenchymal pattern is stable. No mass or malignant-appearing microcalcifications are seen. The axillae are unremarkable. IMPRESSION: No mammographic features suspicious for malignancy are identified. ACR BI-RADS Category 1: Negative. Result letter will be mailed to the patient. Note: At least 10% of breast cancer is not imaged by mammography. Dictated by: Dictated on workstation # [id number]
== END ==
LOC: RAD 13:03
PROVIDERS: ATTEND Family Medicine
DX: Z12.31 Encounter for screening mammogram for malignant neoplasm of breast (principal)
CPT/HCPCS: 77063; 77067